=== PATIENT | female | born 1955 | race Caucasian/White ===

== ENCOUNTER 2024-11-23 11:27 | Outpatient (CLI) | payer MEDICARE, OTHER, SELFPAY ==
--- NOTE | ~2024-11-23 | US_ITS ---
US retroperitoneal comp Ordering provider: Hedy Jimenez, History: . Chronic kidney disease, stage 4 (severe) . Comparison: None. Technique: Ultrasound bilateral kidneys. Findings: RIGHT KIDNEY: Measures 8.7x 4.1x 5.1 cm in length which is normal in size. No renal cysts. No renal m ass or visualized echogenic stones. Otherwise, normal echotexture and contour. No hydronephrosis. Nor mal renal cortical thickness. LEFT KIDNEY: Measures 9.5x 4.9x 4.3 cm in length which is normal in size. No renal cysts. No renal ma ss or visualized echogenic stones. Otherwise, normal echotexture and contour. No hydronephrosis. Norm al renal cortical thickness. BLADDER: Underfilled. Ureteral jets were not seen bilaterally. IMPRESSION: No definite abnormality seen. Reviewed, dictated and finalized at location A.
== END 2024-11-23 11:28 | disposition home or self-care (01) ==
PROVIDERS: PCP Internal Medicine; Visit Provider Internal Medicine Nephrology
DX: N18.4 Chronic kidney disease, stage 4 (severe) (principal)
CPT/HCPCS: 76770

== ENCOUNTER 2024-11-23 12:30 | Outpatient (CLI) | payer MEDICARE, SELFPAY ==
--- OUTSIDE RECORDS SUMMARY | 2024-11-23 12:39 | XMS_ITS ---
Author Organization [facility] Address [address] [place] [address] Care Team Providers Care Allergist Immunologist Name Role Phone Hedy Gross Unavailable [phone] Social History Sex Assigned At : Social History Observation Description Sex Assigned At Female Problems Problem Type SNOMED Code ICD Code Onset Dates Problem Status W/U Status Risk Notes Problem Chronic kidney disease stage 3B (disorder) (622211707) Chronic kidney disease, stage 3b (N18.32) Active confirmed Problem Essential hypertension (91610366) Essential hypertension (I10) Active confirmed Problem Hypothyroidism (74870261) Hypothyroidism, unspecified (E03.9) Active confirmed Problem Hyperuricemia without signs of inflammatory arthritis and tophaceous disease (703195059) Hyperuricemia without signs of inflammatory arthritis and tophaceous disease (E79.0) Active confirmed Encounters Encounter Location Date Provider Diagnosis [place] [facility] [address] [facility] [address] [place] [address] 08/31/2024 Hedy Gross Chronic kidney disea se, stage 3b N18.32 ; Essential hypertension I10 ; Hypothyroidism, unspecified E03.9 and Hyperuricemia without signs of inflammatory arthritis and tophaceous disease E79.0 Assessments Encounter Date Diagnosis (ICD Code) Assessment Notes Treatment Notes Treatment Clinical Notes Section Notes 08/31/2024 Chronic kidney disease, stage 3b (ICD-10 - N18.32) 08/31/2024 Essential hypertension (ICD-10 - I10) 08/31/2024 Hypothyroidism, unspecified (ICD-10 - E03.9) 08/31/2024 Hyperuricemia without signs of inflammatory arthritis and tophaceous disease (ICD-10 - E79.0) Plan Of Treatment Next Appt Details Provider Name:Hedy givens, 11/30/2024 03:00:00 PM, [address] [facility], [address], [place], [address], Progress Notes * GEN MITCHELLOB:1955 (69 yo F)Acc No.[id number]:08/31/2024 Progress Notes Patient: QUINN SOLIS Provider: Uriah GROSS M.D :1955 A ge:69 Y S ex:Female Date:08/31/2024 Address:[address] [place], [place] [id number] Subjective: * Chief Complaints: * * Medical History: Objective: * Vitals: Assessment: * Assessment: 1. C hronic kidney disease, stage 3b - N18.32 (Primary) 2 . E ssential hypertension - I10 3 . H ypothyroidism, unspecified - E03.9 4 . H yperuricemia without signs of inflammatory arthritis and tophaceous disease - E79.0 ? Plan: * Treatment: * Billing Information: * Visit Code: 01753 Office Visit, Est Pt., Level 4. * Procedure Codes: * Electronic signature of Jennifer Gross MD on 11/23/2024 at 12:39 PM CDT Sign off status: Pending * Provider: Uriah GROSS M.D Date: 08/31/2024 Generated for Mitch nair/Yaw/eTransmitting on: 0 11/23/2024 12:39 PM CDT
--- OUTSIDE RECORDS SUMMARY | 2024-11-23 12:39 | XMS_ITS ---
Author Organization [facility] Address [address] [place] [address] Care Team Providers Care Liner Reroll Tender Name Role Phone Lor Grosshit Unavailable [phone] Social History Sex Assigned At : Social History Observation Description Sex Assigned At Female Encounters Encounter Location Date Provider Diagnosis [facility] [place] [facility] [address] [place] [address] 09/28/2024 Hedy Gross Plan Of Treatment Next Appt Details Provider Name:Hedy givens, 11/30/2024 03:00:00 PM, [address] [facility] [address], [address], Progress Notes * ISSA MITCHELLEDOB:1955 (69 yo F)Acc No.[id number]:09/28/2024 Progress Notes Patient: QUINN SOLIS Provider: Uriah GROSS M.D :1955 A ge:69 Y S ex:Female Date:09/28/2024 Address:[address] [place] [address] Subjective: * Chief Complaints: * * Medical History: Objective: * Vitals: Assessment: Plan: * Treatment: * Billing Information: * Visit Code: * Procedure Codes: * Electronic signature of Jennifer Gross MD on 11/23/2024 at 12:39 PM CDT Sign off status: Pending * Provider: Uriah GROSS M.D Date: 09/28/2024 Generated for Orianai ng/Farandeeg/eTransmitting on: 11/23/2024 12:39 PM CDT
--- OUTSIDE RECORDS SUMMARY | 2024-11-23 12:39 | XMS_ITS | Continuity of Care Document ---
Author Organization [facility] Address [address] [facility] [address] [place] [address] Phone Care Team Providers Care Human Resources Benefits Administrator Name Role Phone Marty August Unavailable Unavailable Procedures Procedure Date Eye Exam & Treatment Refraction Advance Directives Directive Yes / No Effective Date File Name No Information Encounters Encounter Description Practice Location Reason(s) For Visit Diagnoses Date Provider Providers Copied on Encounter [facility], [address], [place], [place], [id number], [place] tel:[phone] [facility] No Information 0 Mata Marty. [address] [facility] [address], [place], [address], [place]. tel:[phone] Family History Family Member Type Diagnosis Age At Onset No Information Payers Payer name Insurance type Covered libertarian ID Authoriza tion(s) Mail [employer] Benefit Plan [id number] Social History Type Description Quantity Date Captured Comments Sex Female Smoking Status No Information Chief Complaint And Reason For Visit No Information Reason For Referral Reason For Referral No Information History Of Present Illness Encounter Date Complaint History Of Prese nt Illness No Information Functional Status Date Functional Assessmen t No Information Instructions Date Instruction Additional Infor mation No Information Assessments Type Assessment Date No Information Patient Care Teams Name Effective Dates (start - stop) Status Members No Information
--- OUTSIDE RECORDS SUMMARY | 2024-11-23 12:39 | XMS_ITS | Patient Health Record ---
Author Organization [facility] Address [address] [place] [address] Care Team Providers Care Wood Flooring Specialist Name Role Phone Hedy Jimenez Unavailable [phone] Allergies Allergen (clinical drug ingredient) Drug/Non Drug Allergy documented on EMR Reaction Allergy Type Onset Date Status celecoxib CeleBREX Other Drug Allergy Active Levaquin Hives Drug Allergy Active Reason For Referral No Information Medications Medication SIG (Take, Route, Fr equency, Duration) Notes Start Date End Date Status Allopurinol 100 MG TAKE 1 TABLET BY BRIANDA TH EVERY DAY; Duration: 90 Active Social History Sex Assigned At : Social History Observation Description Sex Assigned At Female Problems Problem Type SNOMED Code ICD Code Onset Dates Problem Status W/U Status Risk Notes Problem Hypothyroidism (78461370) Hypothyroidism, unspecified (E03.9) Active confirmed Problem Secondary hyperparathyroidism (73889522) Secondary hyperparathyroi dism, not elsewhere classified (E21.1) Active confirmed Problem Vitamin D deficiency (24627157) Vitamin D deficiency, unspecified (E55.9) Active confirmed Problem Hyperlipidemia (86440493) Hyperlipidemia, unspecified (E78.5) Active confirmed Problem Hyperuricemia withou t signs of inflammatory arthritis and tophaceous disease (344569689) Hyperuricemia without signs of inflammatory arthritis and tophaceous disease (E79.0) Active confirmed Problem Heart failure (99069363) Heart failure, unspecified (I50.9) Active confirmed Problem Essential hypertensi on (83440367) Essential hypertension (I10) Active confirmed Problem Gastroesophageal reflux disease with esophagitis (disorder) (300108729) Gastro-esophage al reflux disease with esophagitis, without bleeding (K21.00) Active confirmed Problem Chronic kidney disea se stage 3A (disorder) (944577112) Chronic kidney disease, stage 3a (N18.31) Active confirmed Problem Chronic kidney disea se stage 3B (disorder) (867328013) Chronic kidney disease, stage 3b (N18.32) Active confirmed Encounters Encounter Location Date Provider Diagnosis [facility] [address] [facility] [address] [place] [address] 08/31/2024 Hedy Jimenez Chronic kidney disea se, stage 3b N18.32 [...] disease (ICD-10 - E79.0) Plan Of Treatment Pending Test Test Name Order Date ALBUMIN, RANDOM URINE W/CREATININE (6517 ) 01/02/2023 PTH, INTACT AND CALCIUM (8837) 3 RENAL FUNCTION PANEL (81482) 01/02/2023 URIC ACID (905) 01/02/2023 CBC (INCLUDES DIFF/PLT) (6399) 3 URINALYSIS, COMPLETE W/REFLEX TO CULTURE (3020) 01/02/2023 VITAMIN D,25-OH,TOTAL,IA (08142) 023 Next Appt Details Provider Name:Hedy givens, 11/30/2024 03:00:00 PM, [address] [facility], [address], [place], [address],
--- OUTSIDE RECORDS SUMMARY | 2024-11-23 12:40 | XMS_ITS ---
Author Organization [facility] Address [address] [facility] [address] [facility] [address] [place] [address] Care Team Providers Care Registered Phlebotomist Part Time Name Role Phone Barbara Hedy Unavailable [phone] Social History Sex Assigned At : Social History Observation Description Sex Assigned At Female Encounters Encounter Location Date Provider Diagnosis [place] [facility] [address] [facility] [address] [place] [address] 11/02/2024 Hedy Gross Plan Of Treatment Next Appt Details Provider Name:Hedy givens, 11/30/2024 03:00:00 PM, [address] [facility] [address], [place], [address], Progress Notes * ISSA MITCHELLEDOB:1955 (69 yo F)Acc No.[id number]:11/02/2024 Progress Notes Patient: QUINN SOLIS Provider: Uriah GROSS M.D :1955 A ge:69 Y S ex:Female Date:11/02/2024 Address:[address] [place] [address] Subjective: * Chief Complaints: * * Medical History: Objective: * Vitals: Assessment: Plan: * Treatment: * Billing Information: * Visit Code: * Procedure Codes: * Electronic signature of Jennifer Gross MD on 11/23/2024 at 12:40 PM CDT Sign off status: Pending * Provider: Uriah GROSS M.D Date: 11/02/2024 Generated for Orianai ng/Faxing/eTransmitting on: 11/23/2024 12:40 PM CDT
--- OUTSIDE RECORDS SUMMARY | 2024-11-23 12:40 | XMS_ITS | Data Portability ---
Author Organization [facility], Main Office Address [address] [place] [address] Care Team Providers Care Hand Twister Name Role Phone POND JEFF Primary Care Provider JEFF POND Referring Provider [phone] Assessment No assessment recorded. Plan of Treatment Reminders Order Date Submit Date Provider Last Modified By Organization Details Last Modified Time Details Appointments None recorded. Lab PTH (parathyroi d hormone), intact, serum or plasma 2023 [facility], [address] [place], [address], 4 18:15:29 vitamin D, 25-hydroxy, total, serum 2023 [facility] Out[facility] Lab, [address] [place], [address], 5 16:36:51 phosphorus, serum or plasma 2023 [facility], [address] [place], [address], 4 18:05:56 uric acid, serum or plasma 2023 [facility], [address] [place], [address], 4 18:05:59 urinalysis complete, reflex culture [email or web address] [place] [address] Outpatient Lab, [address] [place], [address], 5 16:36:51 vitamin B12, serum 2023 [facility], [address] [place], [address], 4 18:55:58 magnesium, serum or plasma 2023 [facility], [address] [place], [address], 4 18:05:54 CBC w/ auto diff 2023 [facility], [address] [place], [address], 4 17:46:03 CMP, serum or plasma 2023 [facility], [address] [place], [address], 4 18:05:49 lipid panel, serum 2023 [facility], [address] [place], [address], 4 18:05:52 TSH, serum or plasma 2023 [facility], [address] [place], [address], 4 18:34:27 T4, free, serum 2023 024 [facility], [address] [place], [address], 4 18:21:18 PTH (parathyroi d hormone), intact, serum or plasma 2023 024 [facility], [address] [place], [address], 4 21:29:38 vitamin D, 25-hydroxy, total, serum 2023 [email or web address] [facility] Out[facility] Lab, [address] [place], [address], 4 12:55:26 phosphorus, serum or plasma 2023 024 [facility], [address] [place], [address], 4 18:32:25 uric acid, serum or plasma 2023 024 [facility], [address] [place], [address], 4 18:32:29 urinalysis complete, reflex culture 2023 024 [email or web address] [facility] Out[facility] Lab, [address] [place], [address], 4 12:55:26 lipid panel, serum 2023 024 [facility], [address] [place], [address], 4 18:32:14 CMP, serum or plasma 2023 024 [facility], [address] [place], [address], 4 18:32:20 vitamin B12, serum 2023 024 [facility], [address] [place], [address], 4 22:35:44 magnesium, serum or plasma 2023 024 [facility], [address] [place], [address], 4 18:32:23 CBC w/ auto diff 2023 024 [facility], [address] [place], [address], 4 17:51:56 TSH, serum or plasma 2023 024 [facility], [address] [place], [address], 4 19:34:26 T4, free, serum 2023 024 [facility], [address] [place], [address], 4 18:34:20 PTH (parathyroi d hormone), intact, serum or plasma 2022 023 [facility], [address] [place] [address], [address], 3 19:06:47 phosphorus, serum or plasma 2022 023 [facility], [address] [place], [address], 3 18:47:47 uric acid, serum or plasma 2022 023 [facility], [address] [place] [address], [address], 3 18:47:55 vitamin D, 25-hydroxy, total, serum [email or web address] Outpatient Lab, [address] [place], [address], 3 09:43:32 urinalysis complete, reflex culture [address] Outpatient Lab, [address] [place] [address], [address], 3 09:43:32 lipid panel, serum 2022 023 [facility] Outpatient Lab, [address] [place], [address], 3 15:20:21 CMP, serum or plasma 2022 023 [facility], [address] [place], [address], 3 18:47:42 CBC w/ auto diff 2022 023 [facility], [address] [place], [address], 3 17:59:14 TSH, serum or plasma 2022 023 [facility], [address] [place], [address], 3 19:21:30 T4, free, serum 2022 023 [facility], [address] [place], [address], 3 19:09:09 Referral None recorded. Procedures None recorded. Surgeries None recorded. Imaging None recorded. Medication Orders None recorded. Patient TargetsNo targets recorded. Patient Instructions Encounter Date Encounter Id Patient Instructions Last Modified By Organization Details Last Modified Time 09/12/2022 [id number] Hypertension -hyperlipidemia-chr onic kidney disease. Blood work in the form of CBC, CMP, lipid, thyroid, phosphorus, PTH, vitamin-D level and urinalysis with reflex to culture. Continue on current Rx. Follow-up in four months. [email or web address] Not available 09/12/2022 16:41:32 01/18/2023 [id number] Follow-up hypertension -hypothyroidism -chronic kidney disease -GERD- hyperlipidemia. All clinically stable this time. Will continue on current Rx has a considerable amount of blood work already ordered by Nephrology. Will continue on current medications follow-up in four months. Portions of the record may have been created with voice recognition software. Occasional wrong-word or [id number]-f-[id number] substitutions may have occurred due to the inherent limitations of voice recognition software. Read the chart carefully and recognize, using context, where substitutions have occurred. Next Appt: 4 Months Approximate Date: 05/18/2023 [email or web address] Not available 01/18/2023 11:58:08 09/16/2023 [id number] Follow-up hypertension, hyperlipidemia, hypothyroidism, GERD, chronic kidney disease stage IIIB all clinically stable. The patient needs to be followed by Nephrology but it is very were reluctant to do so. Will check blood work consisting of CBC, CMP, lipid, thyroid, phosphorus, PTH level, vitamin-D, uric acid level and urinalysis with reflex to culture. Is overdue on mammogram. Refused to have any colonoscopy or any Cologuard test performed. Also refuses a bone density scan. Follow-up in four months Next Appointment: 4 Months Approximate Date: 01/14/2024 Portions of the record may have been created with voice recognition software. Occasional wrong-word or [id number]-t-txcz substitutions may have occurred due to the inherent limitations of voice recognition software. Read the chart carefully and recognize, using context, where substitutions have occurred. [email or web address] Not available 09/16/2023 16:26:08 05/04/2024 [id number] Follow-up for hypertension, hyperlipidemia, GERD, chronic kidney disease stage IIIB and chronic pain syndrome which is reasonably well controlled simply with Tylenol at this time. Will check blood work consisting of CBC, CMP, lipid, thyroid, PTH, phosphorus, magnesium level, uric acid and B12 and magnesium levels. Continue on current Rx. Needs to be followed by Nephrology. Once again emphasized that she should not take any type of cjzy-isd-lwgmsin nonsteroidals such as Motrin Advil Aleve etc.. Additional Orders - Directives - Recommendations 1. No bfnh-fec-iziteex NSAIDs such as Advil, Aleve, Motrin or any other these agents without notifying us 1st. 2. Mammogram 3. Cologuard test Follow Up: 4 Months Approximate Date: 09/01/2024 Portions of the record may have been created with voice recognition software. Occasional wrong-word or xlqxp-e-mnmr substitutions may have occurred due to the inherent limitations of voice recognition software. Read the chart carefully and recognize, using context, where substitutions have occurred. Created: Jeff Pond M.D. 05.04.2024 03:43 PM Additional Orders - Directives - Recommendations 1. No bpwe-sxg-zsrvjgk NSAIDs such as Advil, Aleve, Motrin or any other these agents without notifying us 1st. 2. Mammogram 3. Cologuard test Follow Up: 4 Months Approximate Date: 09/01/2024 Portions of the record may have been created with voice recognition software. Occasional wrong-word or bcpmf-e-ylxr substitutions may have occurred due to the inherent limitations of voice recognition software. Read the chart carefully and recognize, using context, where substitutions have occurred. Created: Jeff Pond M.D. 05.04.2024 03:44 PM [email or web address] Not available 05/04/2024 16:44:13 08/31/2024 [id number] Follow-up for essential hypertension, hypothyroidism, chronic kidney disease and GERD all clinically stable. Is being followed by Nephrology at this time. Will not change in medication. Has been taking quite a bit in the way of Tylenol. When calculated out she has consuming approximately 3 g per day. But she is off her other pain medications. Will continue on current Rx and follow-up four months Follow Up: 4 Months Approximate Date: 12/29/2024 Portions of record are template driven. When necessary additional context will be provided. Additionally some portions have been created with voice recognition software. Occasional wrong-word or sbxfg-f-oyhz substitutions may have occurred due to the inherent limitations of voice recognition software. Read the chart carefully and recognize, using context, where substitutions may have occurred. Created: Jeff Pond M.D. 08.31.2024 04:09 PM [email or web address] Not available 08/31/2024 17:09:17 Reason for Referral None Reported. Results Created Date Observation Date Name Description Value Unit Range Abnormal Flag Note LastModifiedBy Organization Detail LastModifiedTime 09/13/1909/12/2022 CBC/C OMPLE TE BLD COUNT W/DIF F white blood cells 13.1 x10'3 /uL 4.2-10 .8 high Not Available [facility] (Lab) [address] [place], [address], 09/12/2022 17:59:14 09/13/19 23 09/12/2022 CBC/C OMPLE TE BLD COUNT W/DIF F red blood cells 4.95 x10'6 /uL 3.80-5 .20 Not Available [facility] (Lab) [address] [facility] [place], [address], 09/12/2022 17:59:14 09/13/19 23 09/12/2022 CBC/C OMPLE TE BLD COUNT W/DIF F hemoglobin 15.1 g/dL 12.0-1 5.6 Not Available [facility] (Lab) [address] [facility] [place], [address], 09/12/2022 17:59:14 09/13/19 23 09/12/2022 CBC/C OMPLE TE BLD COUNT W/DIF F hematocrit 45.6 % 35.7-4 5.7 Not Available [facility] (Lab) [address] [place], [address], 09/12/2022 17:59:14 09/13/19 23 09/12/2022 CBC/C OMPLE TE BLD COUNT W/DIF F mean red cell volume 92.1 fL 82.0-9 9.0 Not Available [facility] (Lab) [address] [place], [address], 09/12/2022 17:59:14 09/13/19 23 09/12/2022 CBC/C OMPLE TE BLD COUNT W/DIF F mean red cell hemoglobin 30.5 pg 27.0-3 3.0 Not Available [facility] (Lab) [address] [place], [address], 09/12/2022 17:59:14 09/13/19 23 09/12/2022 CBC/C OMPLE TE BLD COUNT W/DIF F mean RBC HGB concentratio n 33.1 g/dL 31.0-3 6.0 Not Available [facility] (Lab) [address] [place], [address], 09/12/2022 17:59:14 09/13/19 23 09/12/2022 CBC/C OMPLE TE BLD COUNT W/DIF F red cell distribution width 13.9 % 11.8-1 5.5 Not Available [facility] (Lab) [address] [place], [address], 09/12/2022 17:59:14 09/13/19 23 09/12/2022 CBC/C OMPLE TE BLD COUNT W/DIF F platelets 243 x10'3 /uL 150-40 0 Not Available [facility] (Lab) [address] [place], [address], 09/12/2022 17:59:14 09/13/19 23 09/12/2022 CBC/C OMPLE TE BLD COUNT W/DIF F mean platelet volume 10.4 fL 9.0-12 .4 Not Available [facility] (Lab) [address] [place], [address], 09/12/2022 17:59:14 09/13/19 23 09/12/2022 CBC/C OMPLE TE BLD COUNT W/DIF F neutrophils 59.5 % 39.0-7 2.0 Not Available [facility] (Lab) [address] [place], [address], 09/12/2022 17:59:14 09/13/19 23 09/12/2022 CBC/C OMPLE TE BLD COUNT W/DIF F lymphocytes 31.7 % 16.0-4 7.0 Not Available [facility] (Lab) [address] [place], [address], 09/12/2022 17:59:14 09/13/19 23 09/12/2022 CBC/C OMPLE TE BLD COUNT W/DIF F monocytes 4.7 % 5.0-12 .0 low Not Available [facility] (Lab) [address] [place], [address], 09/12/2022 17:59:14 09/13/19 23 09/12/2022 CBC/C OMPLE TE BLD COUNT W/DIF F eosinophils 3.1 % 1.0-7. 0 Not Available [facility] (Lab) [address] [place], [address], 09/12/2022 17:59:14 09/13/19 23 09/12/2022 CBC/C OMPLE TE BLD COUNT W/DIF F basophils 0.7 % 0.0-2. 0 Not Available [facility] (Lab) [address] [place], [address], 09/12/2022 17:59:14 09/13/1909/12/2022 CBC/C OMPLE TE BLD COUNT W/DIF F immature granulocytes 0.3 % 0.00-0 .50 Not Available [facility] (Lab) [address] [place], [address], 09/12/2022 17:59:14 09/13/19 23 09/12/2022 CBC/C OMPLE TE BLD COUNT W/DIF F neutrophils, absolute count 7.81 x10'3 /uL 1.5-8. 0 Not Available [facility] (Lab) [address] [place], [address], 09/12/2022 17:59:14 09/13/19 23 09/12/2022 CBC/C OMPLE TE BLD COUNT W/DIF F lymphocytes, absolute count 4.16 x10'3 /uL 1.07-3 .43 high Not Available [facility] (Lab) [address] [place], [address], 09/12/2022 17:59:14 09/13/19 23 09/12/2022 CBC/C OMPLE TE BLD COUNT W/DIF F monocytes, absolute count 0.61 x10'3 /uL 0.29-0 .99 Not Available [facility] (Lab) [address] [place], [address], 09/12/2022 17:59:14 09/13/19 23 09/12/2022 CBC/C OMPLE TE BLD COUNT W/DIF F eosinophils, absolute count 0.40 x10'3 /uL 0.02-0 .53 Not Available [facility] (Lab) [address] [place], [address], 09/12/2022 17:59:14 09/13/19 23 09/12/2022 CBC/C OMPLE TE BLD COUNT W/DIF F basophils, absolute count 0.09 x10'3 /uL 0.01-0 .08 high Not Available [facility] (Lab) [address] [place], [address], 09/12/2022 17:59:14 09/13/19 23 09/12/2022 CBC/C OMPLE TE BLD COUNT W/DIF F immature granulocytes ,absolute 0.04 x10'3 /uL 0.00-0 .05 Not Available [facility] (Lab) [address] [place], [address], 09/12/2022 17:59:14 09/13/19 23 09/12/2022 CBC/C OMPLE TE BLD COUNT W/DIF F nucleated red blood cells 0.0 % -0 Not Available [facility] (Lab) [address] [place], [address], 09/12/2022 17:59:14 09/13/19 23 09/12/2022 CBC/C OMPLE TE BLD COUNT W/DIF F NRBC# 0.00 x10'3 /uL Not Available [facility] (Lab) [address] [place], [address], 09/12/2022 17:59:14 09/13/19 23 09/12/2022 COMPR EHENS BRAYDEN METAB OLIC PANEL sodium 138 mmol/ L 137-14 5 Not Available [facility] (Lab) [address] [place], [address], 09/12/2022 18:47:42 09/13/19 23 09/12/2022 COMPR EHENS BRAYDEN METAB OLIC PANEL potassium 3.7 mmol/ L 3.5-5. 1 Not Available [facility] (Lab) [address] [place], [address], 09/12/2022 18:47:42 09/13/19 23 09/12/2022 COMPR EHENS BRAYDEN METAB OLIC PANEL chloride 101 mmol/ L 98-107 Not Available [facility] (Lab) [address] [place], [address], 09/12/2022 18:47:42 09/13/19 23 09/12/2022 COMPR EHENS BRAYDEN METAB OLIC PANEL carbon dioxide 25 mmol/ L 22-30 Not Available [facility] (Lab) [address] [place], [address], 09/12/2022 18:47:42 09/13/19 23 09/12/2022 COMPR EHENS BRAYDEN METAB OLIC PANEL anion gap 15.7 mmol/ L 14-22 Not Available [facility] (Lab) [address] [place], [address], 09/12/2022 18:47:42 09/13/19 23 09/12/2022 COMPR EHENS BRAYDEN METAB OLIC PANEL glucose 101 mg/dL 70-99 high Not Available [facility] (Lab) [address] [place], [address], 09/12/2022 18:47:42 09/13/19 23 09/12/2022 COMPR EHENS BRAYDEN METAB OLIC PANEL BUN 17 mg/dL 8-19 Not Available [facility] (Lab) [address] [place], [address], 09/12/2022 18:47:42 09/13/19 23 09/12/2022 COMPR EHENS BRAYDEN METAB OLIC PANEL creatinine 1.63 mg/dL 0.66-1 .25 high Not Available [facility] (Lab) [address] [place], [address], 09/12/2022 18:47:42 09/13/1909/12/2022 COMPR EHENS BRAYDEN METAB OLIC PANEL GFR 32 Refer ence Range : [place] GFR Healt hy Adult : >60 mL/mi n/1.7 3 m2 Chron ic Kidne y Disea se: 15-60 mL/mi n/1.7 3 m2 Kidne y Failu re: <15/m L/min /1.73 m2 www.n iddk. nih.g ov The MDRD study equat ion has not been valid ated in child germán <18 years of age; pregn ant women ; the elder ly >85 years of age; or in some racia l or ethni c subgr oups, such as Hispa nics. Outsi de the valid ated shayy eters , estim ated GFR is less accur ate, requi ring clini lewis judgm ent on a case- by-ca se basis . Clini lewis inter preta tion for other races and ages must be made by the clini manpreet. The MDRD study equat ion has not been valid ated for the evalu ation of serum creat inine relat ed to nutri lisha l statu s or medic ation usage . For perso ns <18 years of age, a pedia tric GFR calcu lator is avail able on the [facility] websi te: https :[email or web address] gustafson.susan mckeon/pr ofess ional s/kdo qi/gf r_cal culat or Not Available [facility] (Lab) [address] [place], [address], 09/12/2022 18:47:42 09/13/1909/12/2022 COMPR EHENS BRAYDEN METAB OLIC PANEL alkaline phosphatase 92 U/L 38-126 Not Available [facility] (Lab) [address] [place], [address], 09/12/2022 18:47:42 09/13/19 23 09/12/2022 COMPR EHENS BRAYDEN METAB OLIC PANEL alanine aminotransfe rase 12 U/L 0-35 Not Available [facility] (Lab) [address] [place], [address], 09/12/2022 18:47:42 09/13/19 23 09/12/2022 COMPR EHENS BRAYDEN METAB OLIC PANEL aspartate aminotransfe rase 22 U/L 15-37 Not Available [facility] (Lab) [address] [place], [address], 09/12/2022 18:47:42 09/13/19 23 09/12/2022 COMPR EHENS BRAYDEN METAB OLIC PANEL bilirubin, total 0.50 mg/dL 0.20-1 .30 Not Available [facility] (Lab) [address] [place], [address], 09/12/2022 18:47:42 09/13/19 23 09/12/2022 COMPR EHENS BRAYDEN METAB OLIC PANEL calcium 9.2 mg/dL 8.4-10 .2 Not Available [facility] (Lab) [address] [place], [address], 09/12/2022 18:47:42 09/13/19 23 09/12/2022 COMPR EHENS BRAYDEN METAB OLIC PANEL total protein 7.5 g/dL 6.3-8. 2 Not Available [facility] (Lab) [address] [place], [address], 09/12/2022 18:47:42 09/13/19 23 09/12/2022 COMPR EHENS BRAYDEN METAB OLIC PANEL albumin 4.5 g/dL 3.0-4. 4 high Not Available [facility] (Lab) [address] [place], [address], 09/12/2022 18:47:42 09/13/19 23 09/12/2022 COMPR EHENS BRAYDEN METAB OLIC PANEL globulin 3.0 g/dL 2.6-4. 2 Not Available [facility] (Lab) [address] [place], [address], 09/12/2022 18:47:42 09/13/19 23 09/12/2022 COMPR EHENS BRAYDEN METAB OLIC PANEL A/G ratio 1.5 ratio 1.0-2. 0 Not Available [facility] (Lab) [address] [place], [address], 09/12/2022 18:47:42 09/13/19 23 09/12/2022 PHOSP HORUS phosphorus 3.8 mg/dL 2.5-4. 5 Not Available [facility] (Lab) [address] [place], [address], 09/12/2022 18:47:47 09/13/19 23 09/12/2022 URIC ACID SERUM uric acid 7.2 mg/dL 2.5-6. 2 high Not Available [facility] (Lab) [address] [place], [address], 09/12/2022 18:47:54 09/13/1909/12/2022 PARAT HY.HO RM(PT H)INT ACT-W /O CA intact parathyroid hormone 193.5 pg/mL 24.0-7 8.0 high Pleas e note new refer ence range effec tive 06/08 . Not Available [facility] (Lab) [address] [place], [address], 09/12/2022 19:06:47 09/13/19 23 09/12/2022 VITAM IN D 25-HY DROXY [id number] 34.2 NG/mL 30-100 Vitam in D Statu s: Defic ient: <20 ng/mL Insuf ficie nt: 20-29 ng/mL Suffi cient : 30-10 0 ng/mL Not Available [facility] (Lab) [address] [place], [address], 09/12/2022 19:07:28 09/13/19 23 09/12/2022 T4 FREE free T4 2.01 NG/dL 0.78-2 .19 Not Available [facility] (Lab) [address] [place], [address], 09/12/2022 19:09:09 09/13/19 23 09/12/2022 TSH thyroid-stim ulating hormone 2.590 uIU/m L 0.465- 4.680 Not Available [facility] (Lab) [address] [place], [address], 09/12/2022 19:21:30 09/15/19 23 09/14/2022 URINA LYSIS COMPL ETE/I RIS W/RFX color YELLOW Not Available [facility] (Lab) [address] [place], [address], 09/14/2022 16:43:14 09/15/19 23 09/14/2022 URINA LYSIS COMPL ETE/I RIS W/RFX appear CLEAR Not Available [facility] (Lab) [address] [place], [address], 09/14/2022 16:43:14 09/15/19 23 09/14/2022 URINA LYSIS COMPL ETE/I RIS W/RFX specific gravity 1.011 1.001- 1.030 Not Available [facility] (Lab) [address] [place], [address], 09/14/2022 16:43:14 09/15/19 23 09/14/2022 URINA LYSIS COMPL ETE/I RIS W/RFX pH 5.5 pH_un its 5.0-9. 0 Not Available [facility] (Lab) [address] [place], [address], 09/14/2022 16:43:14 09/15/19 23 09/14/2022 URINA LYSIS COMPL ETE/I RIS W/RFX leukocytes NEGATI VE batool/u L negati ve- Not Available [facility] (Lab) [address] [place], [address], 09/14/2022 16:43:14 09/15/19 23 09/14/2022 URINA LYSIS COMPL ETE/I RIS W/RFX nitrite NEGATI VE negati ve- Not Available [facility] (Lab) [address] [place], [address], 09/14/2022 16:43:14 09/15/19 23 09/14/2022 URINA LYSIS COMPL ETE/I RIS W/RFX protein NEGATI VE mg/dL negati ve- Not Available [facility] (Lab) [address] [place], [address], 09/14/2022 16:43:14 09/15/19 23 09/14/2022 URINA LYSIS COMPL ETE/I RIS W/RFX glucose NORMAL mg/dL normal - Not Available [facility] (Lab) [address] [place], [address], 09/14/2022 16:43:14 09/15/19 23 09/14/2022 URINA LYSIS COMPL ETE/I RIS W/RFX ketones NEGATI VE mg/dL negati ve- Not Available [facility] (Lab) [address] [place], [address], 09/14/2022 16:43:14 09/15/19 23 09/14/2022 URINA LYSIS COMPL ETE/I RIS W/RFX urobilinogen NORMAL mg/dL normal - Not Available [facility] (Lab) [address] [place], [address], 09/14/2022 16:43:14 09/15/19 23 09/14/2022 URINA LYSIS COMPL ETE/I RIS W/RFX bilirubin NEGATI VE mg/dL negati ve- Not Available [facility] (Lab) [address] [place], [address], 09/14/2022 16:43:14 09/15/19 23 09/14/2022 URINA LYSIS COMPL ETE/I RIS W/RFX blood NEGATI VE mg/dL negati ve- Not Available [facility] (Lab) [address] [place], [address], 09/14/2022 16:43:14 09/15/19 23 09/14/2022 URINA LYSIS COMPL ETE/I RIS W/RFX white blood cells 0-8 /i??h pfi?? 0-8 Not Available [facility] (Lab) [address] [place], [address], 09/14/2022 16:43:14 09/15/19 23 09/14/2022 URINA LYSIS COMPL ETE/I RIS W/RFX red blood cells 0-4 /i??h pfi?? 0-4 Not Available [facility] (Lab) [address] [place], [address], 09/14/2022 16:43:14 09/15/19 23 09/14/2022 URINA LYSIS COMPL ETE/I RIS W/RFX bacteria OCCASI ONAL abnormal Not Available [facility] (Lab) [address] [place], [address], 09/14/2022 16:43:14 09/15/19 23 09/14/2022 URINA LYSIS COMPL ETE/I RIS W/RFX mucous OCCASI ONAL /i??l pfi?? abnormal Not Available [facility] (Lab) [address] [place], [address], 09/14/2022 16:43:14 09/15/19 23 09/14/2022 URINA LYSIS COMPL ETE/I RIS W/RFX squamous epithelial FEW /i??l pfi?? abnormal Not Available [facility] (Lab) [address] [place], [address], 09/14/2022 16:43:14 09/15/19 23 09/14/2022 URINA LYSIS COMPL ETE/I RIS W/RFX hyaline cast MODERA TE /i??l pfi?? none seen- abnormal Not Available [facility] (Lab) [address] [facility] [place], [address], 09/14/2022 16:43:14 09/16/19 24 09/16/2023 CBC/C OMPLE TE BLD COUNT W/DIF F white blood cells 13.5 x10'3 /uL 4.2-10 .8 high Not Available [facility] (Lab) [address] [place], [address], 09/16/2023 17:51:55 09/16/19 24 09/16/2023 CBC/C OMPLE TE BLD COUNT W/DIF F red blood cells 4.91 x10'6 /uL 3.80-5 .20 Not Available [facility] (Lab) [address] [place], [address], 09/16/2023 17:51:55 09/16/19 24 09/16/2023 CBC/C OMPLE TE BLD COUNT W/DIF F hemoglobin 16.0 g/dL 12.0-1 5.6 high Not Available [facility] (Lab) [address] [place], [address], 09/16/2023 17:51:55 09/16/19 24 09/16/2023 CBC/C OMPLE TE BLD COUNT W/DIF F hematocrit 46.6 % 35.7-4 5.7 high Not Available [facility] (Lab) [address] [place], [address], 09/16/2023 17:51:55 09/16/19 24 09/16/2023 CBC/C OMPLE TE BLD COUNT W/DIF F mean red cell volume 94.9 fL 82.0-9 9.0 Not Available [facility] (Lab) [address] [place], [address], 09/16/2023 17:51:55 09/16/19 24 09/16/2023 CBC/C OMPLE TE BLD COUNT W/DIF F mean red cell hemoglobin 32.6 pg 27.0-3 3.0 Not Available [facility] (Lab) [address] [facility] [place], [address], 09/16/2023 17:51:55 09/16/19 24 09/16/2023 CBC/C OMPLE TE BLD COUNT W/DIF F mean RBC HGB concentratio n 34.3 g/dL 31.0-3 6.0 Not Available [facility] (Lab) [address] [place], [address], 09/16/2023 17:51:55 09/16/19 24 09/16/2023 CBC/C OMPLE TE BLD COUNT W/DIF F red cell distribution width 13.3 % 11.8-1 5.5 Not Available [facility] (Lab) [address] [place], [address], 09/16/2023 17:51:55 09/16/19 24 09/16/2023 CBC/C OMPLE TE BLD COUNT W/DIF F platelets 305 x10'3 /uL 150-40 0 Not Available [facility] (Lab) [address] [place], [address], 09/16/2023 17:51:55 09/16/19 24 09/16/2023 CBC/C OMPLE TE BLD COUNT W/DIF F mean platelet volume 10.6 fL 9.0-12 .4 Not Available [facility] (Lab) [address] [place], [address], 09/16/2023 17:51:55 09/16/19 24 09/16/2023 CBC/C OMPLE TE BLD COUNT W/DIF F neutrophils 71.9 % 39.0-7 2.0 Not Available [facility] (Lab) [address] [place], [address], 09/16/2023 17:51:55 09/16/19 24 09/16/2023 CBC/C OMPLE TE BLD COUNT W/DIF F lymphocytes 20.2 % 16.0-4 7.0 Not Available [facility] (Lab) [address] [place], [address], 09/16/2023 17:51:55 09/16/19 24 09/16/2023 CBC/C OMPLE TE BLD COUNT W/DIF F monocytes 4.7 % 5.0-12 .0 low Not Available [facility] (Lab) [address] [place], [address], 09/16/2023 17:51:55 09/16/19 24 09/16/2023 CBC/C OMPLE TE BLD COUNT W/DIF F eosinophils 1.9 % 1.0-7. 0 Not Available [facility] (Lab) [address] [place], [address], 09/16/2023 17:51:55 09/16/19 24 09/16/2023 CBC/C OMPLE TE BLD COUNT W/DIF F basophils 0.9 % 0.0-2. 0 Not Available [facility] (Lab) [address] [place], [address], 09/16/2023 17:51:55 09/16/19 24 09/16/2023 CBC/C OMPLE TE BLD COUNT W/DIF F immature granulocytes 0.4 % 0.00-0 .50 Not Available [facility] (Lab) [address] [place], [address], 09/16/2023 17:51:55 09/16/19 24 09/16/2023 CBC/C OMPLE TE BLD COUNT W/DIF F neutrophils, absolute count 9.68 x10'3 /uL 1.5-8. 0 high Not Available [facility] (Lab) [address] [place], [address], 09/16/2023 17:51:55 09/16/19 24 09/16/2023 CBC/C OMPLE TE BLD COUNT W/DIF F lymphocytes, absolute count 2.72 x10'3 /uL 1.07-3 .43 Not Available [facility] (Lab) [address] [place], [address], 09/16/2023 17:51:55 09/16/19 24 09/16/2023 CBC/C OMPLE TE BLD COUNT W/DIF F monocytes, absolute count 0.63 x10'3 /uL 0.29-0 .99 Not Available [facility] (Lab) [address] [place], [address], 09/16/2023 17:51:55 09/16/19 24 09/16/2023 CBC/C OMPLE TE BLD COUNT W/DIF F eosinophils, absolute count 0.26 x10'3 /uL 0.02-0 .53 Not Available [facility] (Lab) [address] [place], [address], 09/16/2023 17:51:55 09/16/19 24 09/16/2023 CBC/C OMPLE TE BLD COUNT W/DIF F basophils, absolute count 0.12 x10'3 /uL 0.01-0 .08 high Not Available [facility] (Lab) [address] [place], [address], 09/16/2023 17:51:55 09/16/19 24 09/16/2023 CBC/C OMPLE TE BLD COUNT W/DIF F immature granulocytes ,absolute 0.06 x10'3 /uL 0.00-0 .05 high Not Available [facility] (Lab) [address] [place], [address], 09/16/2023 17:51:55 09/16/19 24 09/16/2023 CBC/C OMPLE TE BLD COUNT W/DIF F nucleated red blood cells 0.0 % -0 Not Available [facility] (Lab) [address] [place], [address], 09/16/2023 17:51:55 09/16/19 24 09/16/2023 CBC/C OMPLE TE BLD COUNT W/DIF F NRBC# 0.00 x10'3 /uL Not Available [facility] (Lab) [address] [place], [address], 09/16/2023 17:51:55 09/16/19 24 09/16/2023 URINA LYSIS COMPL ETE/I RIS W/RFX color YELLOW Not Available [facility] (Lab) [address] [place], [address], 09/16/2023 17:52:22 09/16/19 24 09/16/2023 URINA LYSIS COMPL ETE/I RIS W/RFX appear EXTRA TURBID abnormal Not Available [facility] (Lab) [address] [place], [address], 09/16/2023 17:52:22 09/16/19 24 09/16/2023 URINA LYSIS COMPL ETE/I RIS W/RFX specific gravity 1.025 1.001- 1.030 Not Available [facility] (Lab) [address] [place], [address], 09/16/2023 17:52:22 09/16/19 24 09/16/2023 URINA LYSIS COMPL ETE/I RIS W/RFX pH 5.0 pH_un its 5.0-9. 0 Not Available [facility] (Lab) [address] [place], [address], 09/16/2023 17:52:22 09/16/19 24 09/16/2023 URINA LYSIS COMPL ETE/I RIS W/RFX leukocytes 250 batool/u L negati ve- abnormal Not Available [facility] (Lab) [address] [place], [address], 09/16/2023 17:52:22 09/16/19 24 09/16/2023 URINA LYSIS COMPL ETE/I RIS W/RFX nitrite NEGATI VE negati ve- Not Available [facility] (Lab) [address] [place], [address], 09/16/2023 17:52:22 09/16/19 24 09/16/2023 URINA LYSIS COMPL ETE/I RIS W/RFX protein 30 mg/dL negati ve- abnormal Not Available [facility] (Lab) [address] [place], [address], 09/16/2023 17:52:22 09/16/19 24 09/16/2023 URINA LYSIS COMPL ETE/I RIS W/RFX glucose NORMAL mg/dL normal - Not Available [facility] (Lab) [address] [place], [address], 09/16/2023 17:52:22 09/16/19 24 09/16/2023 URINA LYSIS COMPL ETE/I RIS W/RFX ketones NEGATI VE mg/dL negati ve- Not Available [facility] (Lab) [address] [place], [address], 09/16/2023 17:52:22 09/16/19 24 09/16/2023 URINA LYSIS COMPL ETE/I RIS W/RFX urobilinogen 3 mg/dL normal - abnormal Not Available [facility] (Lab) [address] [place], [address], 09/16/2023 17:52:22 09/16/19 24 09/16/2023 URINA LYSIS COMPL ETE/I RIS W/RFX bilirubin NEGATI VE mg/dL negati ve- Not Available [facility] (Lab) [address] [place], [address], 09/16/2023 17:52:22 09/16/19 24 09/16/2023 URINA LYSIS COMPL ETE/I RIS W/RFX blood NEGATI VE mg/dL negati ve- Not Available [facility] (Lab) [address] [place], [address], 09/16/2023 17:52:22 09/16/19 24 09/16/2023 URINA LYSIS COMPL ETE/I RIS W/RFX white blood cells 0-8 /i??h pfi?? 0-8 Not Available [facility] (Lab) [address] [place], [address], 09/16/2023 17:52:22 09/16/19 24 09/16/2023 URINA LYSIS COMPL ETE/I RIS W/RFX red blood cells 5-10 /i??h pfi?? 0-4 abnormal Not Available [facility] (Lab) [address] [place], [address], 09/16/2023 17:52:22 09/16/19 24 09/16/2023 URINA LYSIS COMPL ETE/I RIS W/RFX bacteria OCCASI ONAL abnormal Not Available [facility] (Lab) [address] [place], [address], 09/16/2023 17:52:22 09/16/19 24 09/16/2023 URINA LYSIS COMPL ETE/I RIS W/RFX mucous OCCASI ONAL /i??l pfi?? abnormal Not Available [facility] (Lab) [address] [place], [address], 09/16/2023 17:52:22 09/16/19 24 09/16/2023 URINA LYSIS COMPL ETE/I RIS W/RFX squamous epithelial PACKED FIELD /i??l pfi?? abnormal Not Available [facility] (Lab) [address] [place], [address], 09/16/2023 17:52:22 09/16/19 24 09/16/2023 LIPID PANEL cholesterol 162 mg/dL 140-19 9 NIH ANGEL NSUS RECOM MENDA TION FOR DELMY STERO L: ADULT CHILD LOW RISK: <200 <170 BORDE RLINE : <200- 239 ----- HIGH RISK: >240 >200 Not Available [facility] (Lab) [address] [place], [address], 09/16/2023 18:32:14 09/16/19 24 09/16/2023 LIPID PANEL triglyceride s 172 mg/dL 0-150 high NIH ANGEL NSUS REPOR T RECOM MENDA TION FOR TRIGL YCERI KENDRICK: ADULT CHILD LOW RISK: <150 ----- BODER LINE: 150-1 99 ----- HIGH RISK: >200 ----- Not Available [facility] (Lab) [address] [place], [address], 09/16/2023 18:32:14 09/16/19 24 09/16/2023 LIPID PANEL HDL cholesterol 46 mg/dL 40- Not Available [facility] (Lab) [address] [place], [address], 09/16/2023 18:32:14 09/16/19 24 09/16/2023 LIPID PANEL LDL cholesterol, calculated 82 mg/dL 0-130 NIH ANGEL NSUS REPOR T RECOM MENDA TIONS FOR LDL: ADULT CHILD LOW RISK <130 <110 (OPTI MAL LDL) <100 ----- BORDE RLINE : 130-1 59 ----- HIGH RISK: >160 >130 A TRIGL YCERI DE RESUL T >400 INVAL IDATE S THE CALCU LATIO N FOR LDL FRACT IONAT ION - THE LDL RESUL T WILL NOT BE REPOR LYLE. Not Available [facility] (Lab) [address] [place], [address], 09/16/2023 18:32:14 09/16/19 24 09/16/2023 COMPR EHENS BRAYDEN METAB OLIC PANEL sodium 138 mmol/ L 137-14 5 Not Available [facility] (Lab) [address] [place], [address], 09/16/2023 18:32:20 09/16/19 24 09/16/2023 COMPR EHENS BRAYDEN METAB OLIC PANEL potassium 4.3 mmol/ L 3.5-5. 1 Not Available [facility] (Lab) [address] [place], [address], 09/16/2023 18:32:20 09/16/19 24 09/16/2023 COMPR EHENS BRAYDEN METAB OLIC PANEL chloride 104 mmol/ L 98-107 Not Available [facility] (Lab) [address] [place], [address], 09/16/2023 18:32:20 09/16/19 24 09/16/2023 COMPR EHENS BRAYDEN METAB OLIC PANEL carbon dioxide 22 mmol/ L 22-30 Not Available [facility] (Lab) [address] [place], [address], 09/16/2023 18:32:20 09/16/19 24 09/16/2023 COMPR EHENS BRAYDEN METAB OLIC PANEL anion gap 16.3 mmol/ L 14-22 Not Available [facility] (Lab) [address] [place], [address], 09/16/2023 18:32:20 09/16/19 24 09/16/2023 COMPR EHENS BRAYDEN METAB OLIC PANEL glucose 131 mg/dL 70-99 high Not Available [facility] (Lab) [address] [place], [address], 09/16/2023 18:32:20 09/16/19 24 09/16/2023 COMPR EHENS BRAYDEN METAB OLIC PANEL BUN 14 mg/dL 8-19 Not Available [facility] (Lab) [address] [place], [address], 09/16/2023 18:32:20 09/16/19 24 09/16/2023 COMPR EHENS BRAYDEN METAB OLIC PANEL creatinine 1.89 mg/dL 0.66-1 .25 high Not Available [facility] (Lab) [address] [place], [address], 09/16/2023 18:32:20 09/16/19 24 09/16/2023 COMPR EHENS BRAYDEN METAB OLIC PANEL GFR 27 Refer ence Range : [place] GFR Healt hy Adult : >60 mL/mi n/1.7 3 m2 Chron ic Kidne y Disea se: 15-60 mL/mi n/1.7 3 m2 Kidne y Failu re: <15/m L/min /1.73 m2 www.n iddk. nih.g ov The MDRD study equat ion has not been valid ated in child germán <18 years of age; pregn ant women ; the elder ly >85 years of age; or in some racia l or ethni c subgr oups, such as [facility] nics. Outsi de the valid ated shayy eters , estim ated GFR is less accur ate, requi ring clini lewis judgm ent on a case- by-ca se basis . Clini lewis inter preta tion for other races and ages must be made by the clini manpreet. The MDRD study equat ion has not been valid ated for the evalu ation of serum creat inine relat ed to nutri lisha l statu s or medic ation usage . For perso ns <18 years of age, a pedia tric GFR calcu lator is avail able on the F websi te: https :[email or web address].o rg/pr ofess ional s/kdo qi/gf r_cal culat or Not Available [facility] (Lab) [address] [place], [address], 09/16/2023 18:32:20 09/16/19 24 09/16/2023 COMPR EHENS BRAYDEN METAB OLIC PANEL alkaline phosphatase 98 U/L 38-126 Not Available [facility] (Lab) [address] [place], [address], 09/16/2023 18:32:20 09/16/19 24 09/16/2023 COMPR EHENS BRAYDEN METAB OLIC PANEL alanine aminotransfe rase 21 U/L 0-35 Not Available [facility] (Lab) [address] [place], [address], 09/16/2023 18:32:20 09/16/19 24 09/16/2023 COMPR EHENS BRAYDEN METAB OLIC PANEL aspartate aminotransfe rase 31 U/L 15-37 Not Available [facility] (Lab) [address] [place], [address], 09/16/2023 18:32:20 09/16/19 24 09/16/2023 COMPR EHENS BRAYDEN METAB OLIC PANEL bilirubin, total 0.60 mg/dL 0.20-1 .30 Not Available [facility] (Lab) [address] [place], [address], 09/16/2023 18:32:20 09/16/19 24 09/16/2023 COMPR EHENS BRAYDEN METAB OLIC PANEL calcium 9.1 mg/dL 8.4-10 .2 Not Available [facility] (Lab) [address] [place], [address], 09/16/2023 18:32:20 09/16/19 24 09/16/2023 COMPR EHENS BRAYDEN METAB OLIC PANEL total protein 7.9 g/dL 6.3-8. 2 Not Available [facility] (Lab) [address] [place], [address], 09/16/2023 18:32:20 09/16/19 24 09/16/2023 COMPR EHENS BRAYDEN METAB OLIC PANEL albumin 4.6 g/dL 3.0-4. 4 high Not Available [facility] (Lab) [address] [place], [address], 09/16/2023 18:32:20 09/16/19 24 09/16/2023 COMPR EHENS BRAYDEN METAB OLIC PANEL globulin 3.3 g/dL 2.6-4. 2 Not Available [facility] (Lab) [address] [place], [address], 09/16/2023 18:32:20 09/16/19 24 09/16/2023 COMPR EHENS BRAYDEN METAB OLIC PANEL A/G ratio 1.4 ratio 1.0-2. 0 Not Available [facility] (Lab) [address] [place], [address], 09/16/2023 18:32:20 09/16/19 24 09/16/2023 MAGNE SIUM magnesium 1.7 mg/dL 1.6-2. 3 Not Available [facility] (Lab) [address] [place], [address], 09/16/2023 18:32:23 09/16/19 24 09/16/2023 PHOSP HORUS phosphorus 4.1 mg/dL 2.5-4. 5 Not Available [facility] (Lab) [address] [place], [address], 09/16/2023 18:32:25 09/16/19 24 09/16/2023 URIC ACID SERUM uric acid 11.6 mg/dL 2.5-6. 2 high Not Available [facility] (Lab) [address] [place], [address], 09/16/2023 18:32:29 09/16/19 24 09/16/2023 T4 FREE free T4 1.45 NG/dL 0.78-2 .19 Not Available [facility] (Lab) [address] [place], [address], 09/16/2023 18:34:20 09/16/19 24 09/16/2023 TSH thyroid-stim ulating hormone 10.600 uIU/m L 0.465- 4.680 high Not Available [facility] (Lab) [address] [place], [address], 09/16/2023 19:34:26 09/16/19 24 09/16/2023 PARAT HY.HO RM(PT H)INT ACT-W /O CA intact parathyroid hormone 322.2 pg/mL 24.0-7 8.0 high Pleas e note new refer ence range effec tive 06/08 . Not Available [facility] (Lab) [address] [place], [address], 09/16/2023 21:29:38 09/16/19 24 09/16/2023 VITAM IN D 25-HY DROXY vd25oh 27.0 NG/mL 30-100 low Vitam in D Statu s: Defic ient: <20 ng/mL Insuf ficie nt: 20-29 ng/mL Suffi cient : 30-10 0 ng/mL Not Available [facility] (Lab) [address] [place], [address], 09/16/2023 21:30:55 09/16/19 24 09/16/2023 VITAM IN B12 (ISIDRO TITO ) vb12 238 pg/mL 239-93 1 low Not Available [facility] (Lab) [address] [place], [address], 09/16/2023 22:35:44 09/18/19 24 09/18/2023 PROTE IN 24H URINE ur prot 9 mg/dL Not Available [facility] (Lab) [address] [place], [address], 09/18/2023 17:03:35 09/18/19 24 09/18/2023 PROTE IN 24H URINE 24H prot 180 mg/24 HR 42-225 Not Available [facility] (Lab) [address] [place], [address], 09/18/2023 17:03:35 09/18/19 24 09/18/2023 PROTE IN 24H URINE tot vol 2000 mL 600-20 00 Not Available [facility] (Lab) [address] [place], [address], 09/18/2023 17:03:35 09/18/19 24 09/18/2023 CREAT ININE CLEAR ANCE 24H URINE creatinine, serum 1.89 mg/dL 0.60-1 .30 high Not Available [facility] (Lab) [address] [place], [address], 09/18/2023 18:05:30 09/18/19 24 09/18/2023 CREAT ININE CLEAR ANCE 24H URINE ur creat 51.00 mg/dL Not Available [facility] (Lab) [address] [place], [address], 09/18/2023 18:05:30 09/18/19 24 09/18/2023 CREAT ININE CLEAR ANCE 24H URINE creacl 37 mL/mi n 88-128 low Not Available [facility] (Lab) [address] [place], [address], 09/18/2023 18:05:30 09/18/19 24 09/18/2023 CREAT ININE CLEAR ANCE 24H URINE tot vol 2000 mL 600-20 00 Not Available [facility] (Lab) [address] [place], [address], 09/18/2023 18:05:30 05/04/20 24 05/04/2024 CBC/C OMPLE TE BLD COUNT W/DIF F white blood cells 14.2 x10'3 /uL 4.2-10 .8 high Not Available [facility] (Lab) [address] [place], [address], 05/04/2024 17:46:03 05/04/20 24 05/04/2024 CBC/C OMPLE TE BLD COUNT W/DIF F red blood cells 4.66 x10'6 /uL 3.80-5 .20 Not Available [facility] (Lab) [address] [place], [address], 05/04/2024 17:46:03 05/04/20 24 05/04/2024 CBC/C OMPLE TE BLD COUNT W/DIF F hemoglobin 15.4 g/dL 12.0-1 5.6 Not Available [facility] (Lab) [address] [place], [address], 05/04/2024 17:46:03 05/04/20 24 05/04/2024 CBC/C OMPLE TE BLD COUNT W/DIF F hematocrit 44.9 % 35.7-4 5.7 Not Available [facility] (Lab) [address] [place], [address], 05/04/2024 17:46:03 05/04/20 24 05/04/2024 CBC/C OMPLE TE BLD COUNT W/DIF F mean red cell volume 96.4 fL 82.0-9 9.0 Not Available [facility] (Lab) [address] [place], [address], 05/04/2024 17:46:03 05/04/20 24 05/04/2024 CBC/C OMPLE TE BLD COUNT W/DIF F mean red cell hemoglobin 33.0 pg 27.0-3 3.0 Not Available [facility] (Lab) [address] [place], [address], 05/04/2024 17:46:03 05/04/20 24 05/04/2024 CBC/C OMPLE TE BLD COUNT W/DIF F mean RBC HGB concentratio n 34.3 g/dL 31.0-3 6.0 Not Available [facility] (Lab) [address] [facility] [place], [address], 05/04/2024 17:46:03 05/04/20 24 05/04/2024 CBC/C OMPLE TE BLD COUNT W/DIF F red cell distribution width 13.7 % 11.8-1 5.5 Not Available [facility] (Lab) [address] [place], [address], 05/04/2024 17:46:03 05/04/20 24 05/04/2024 CBC/C OMPLE TE BLD COUNT W/DIF F platelets 284 x10'3 /uL 150-40 0 Not Available [facility] (Lab) [address] [place], [address], 05/04/2024 17:46:03 05/04/20 24 05/04/2024 CBC/C OMPLE TE BLD COUNT W/DIF F mean platelet volume 11.0 fL 9.0-12 .4 Not Available [facility] (Lab) [address] [place], [address], 05/04/2024 17:46:03 05/04/20 24 05/04/2024 CBC/C OMPLE TE BLD COUNT W/DIF F neutrophils 55.7 % 39.0-7 2.0 Not Available [facility] (Lab) [address] [place], [address], 05/04/2024 17:46:03 05/04/20 24 05/04/2024 CBC/C OMPLE TE BLD COUNT W/DIF F lymphocytes 33.3 % 16.0-4 7.0 Not Available [facility] (Lab) [address] [place], [address], 05/04/2024 17:46:03 05/04/20 24 05/04/2024 CBC/C OMPLE TE BLD COUNT W/DIF F monocytes 7.1 % 5.0-12 .0 Not Available [facility] (Lab) [address] [place], [address], 05/04/2024 17:46:03 05/04/20 24 05/04/2024 CBC/C OMPLE TE BLD COUNT W/DIF F eosinophils 2.5 % 1.0-7. 0 Not Available [facility] (Lab) [address] [place], [address], 05/04/2024 17:46:03 05/04/20 24 05/04/2024 CBC/C OMPLE TE BLD COUNT W/DIF F basophils 0.8 % 0.0-2. 0 Not Available [facility] (Lab) [address] [place], [address], 05/04/2024 17:46:03 05/04/20 24 05/04/2024 CBC/C OMPLE TE BLD COUNT W/DIF F immature granulocytes 0.6 % 0.00-0 .50 high Not Available [facility] (Lab) [address] [place], [address], 05/04/2024 17:46:03 05/04/20 24 05/04/2024 CBC/C OMPLE TE BLD COUNT W/DIF F neutrophils, absolute count 7.89 x10'3 /uL 1.5-8. 0 Not Available [facility] (Lab) [address] [place], [address], 05/04/2024 17:46:03 05/04/20 24 05/04/2024 CBC/C OMPLE TE BLD COUNT W/DIF F lymphocytes, absolute count 4.71 x10'3 /uL 1.07-3 .43 high Not Available [facility] (Lab) [address] [place], [address], 05/04/2024 17:46:03 05/04/20 24 05/04/2024 CBC/C OMPLE TE BLD COUNT W/DIF F monocytes, absolute count 1.01 x10'3 /uL 0.29-0 .99 high Not Available [facility] (Lab) [address] [place], [address], 05/04/2024 17:46:03 05/04/20 24 05/04/2024 CBC/C OMPLE TE BLD COUNT W/DIF F eosinophils, absolute count 0.36 x10'3 /uL 0.02-0 .53 Not Available [facility] (Lab) [address] [place], [address], 05/04/2024 17:46:03 05/04/20 24 05/04/2024 CBC/C OMPLE TE BLD COUNT W/DIF F basophils, absolute count 0.11 x10'3 /uL 0.01-0 .08 high Not Available [facility] (Lab) [address] [place], [address], 05/04/2024 17:46:03 05/04/20 24 05/04/2024 CBC/C OMPLE TE BLD COUNT W/DIF F immature granulocytes ,absolute 0.08 x10'3 /uL 0.00-0 .05 high Not Available [facility] (Lab) [address] [place], [address], 05/04/2024 17:46:03 05/04/20 24 05/04/2024 CBC/C OMPLE TE BLD COUNT W/DIF F nucleated red blood cells 0.0 % -0 Not Available [facility] (Lab) [address] [place], [address], 05/04/2024 17:46:03 05/04/20 24 05/04/2024 CBC/C OMPLE TE BLD COUNT W/DIF F NRBC# 0.00 x10'3 /uL Not Available [facility] (Lab) [address] [place], [address], 05/04/2024 17:46:03 05/04/20 24 05/04/2024 COMPR EHENS BRAYDEN METAB OLIC PANEL sodium 142 mmol/ L 137-14 5 Not Available [facility] (Lab) [address] [place], [address], 05/04/2024 18:05:49 05/04/20 24 05/04/2024 COMPR EHENS BRAYDEN METAB OLIC PANEL potassium 4.0 mmol/ L 3.5-5. 1 Not Available [facility] (Lab) [address] [place], [address], 05/04/2024 18:05:49 05/04/20 24 05/04/2024 COMPR EHENS BRAYDEN METAB OLIC PANEL chloride 106 mmol/ L 98-107 Not Available [facility] (Lab) [address] [place], [address], 05/04/2024 18:05:49 05/04/20 24 05/04/2024 COMPR EHENS BRAYDEN METAB OLIC PANEL carbon dioxide 25 mmol/ L 22-30 Not Available [facility] (Lab) [address] [place], [address], 05/04/2024 18:05:49 05/04/20 24 05/04/2024 COMPR EHENS BRAYDEN METAB OLIC PANEL anion gap 15.0 mmol/ L 14-22 Not Available [facility] (Lab) [address] [place], [address], 05/04/2024 18:05:49 05/04/20 24 05/04/2024 COMPR EHENS BRAYDEN METAB OLIC PANEL glucose 145 mg/dL 70-99 high Not Available [facility] (Lab) [address] [place], [address], 05/04/2024 18:05:49 05/04/20 24 05/04/2024 COMPR EHENS BRAYDEN METAB OLIC PANEL BUN 20 mg/dL 8-19 high Not Available [facility] (Lab) [address] [place], [address], 05/04/2024 18:05:49 05/04/20 24 05/04/2024 COMPR EHENS BRAYDEN METAB OLIC PANEL creatinine 1.91 mg/dL 0.66-1 .25 high Not Available [facility] (Lab) [address] [place], [address], 05/04/2024 18:05:49 05/04/20 24 05/04/2024 COMPR EHENS BRAYDEN METAB OLIC PANEL GFR 26 Refer ence Range : [place] GFR Healt hy Adult : >60 mL/mi n/1.7 3 m2 Chron ic Kidne y Disea se: 15-60 mL/mi n/1.7 3 m2 Kidne y Failu re: <15/m L/min /1.73 m2 www.n iddk. nih.g ov The MDRD study equat ion has not been valid ated in child germán <18 years of age; pregn ant women ; the elder ly >85 years of age; or in some racia l or ethni c subgr oups, such as [employer] nics. Outsi de the valid ated shayy eters , estim ated GFR is less accur ate, requi ring clini lewis judgm ent on a case- by-ca se basis . Clini lewis inter preta tion for other races and ages must be made by the clini manpreet. The MDRD study equat ion has not been valid ated for the evalu ation of serum creat inine relat ed to nutri lisha l statu s or medic ation usage . For perso ns <18 years of age, a pedia tric GFR calcu lator is avail able on the [employer] websi te: https :[email or web address] [email or web address]/pr [email or web address] qi/gf r_cal culat or Not Available [facility] (Lab) [address] [place], [address], 05/04/2024 18:05:49 05/04/20 24 05/04/2024 COMPR EHENS BRAYDEN METAB OLIC PANEL alkaline phosphatase 99 U/L 38-126 Not Available [facility] (Lab) [address] [place], [address], 05/04/2024 18:05:49 05/04/20 24 05/04/2024 COMPR EHENS BRAYDEN METAB OLIC PANEL alanine aminotransfe rase 27 U/L 0-35 Not Available [facility] (Lab) [address] [place], [address], 05/04/2024 18:05:49 05/04/20 24 05/04/2024 COMPR EHENS BRAYDEN METAB OLIC PANEL aspartate aminotransfe rase 40 U/L 15-37 high Not Available [facility] (Lab) [address] [place], [address], 05/04/2024 18:05:49 05/04/20 24 05/04/2024 COMPR EHENS BRAYDEN METAB OLIC PANEL bilirubin, total 0.80 mg/dL 0.20-1 .30 Not Available [facility] (Lab) [address] [place], [address], 05/04/2024 18:05:49 05/04/20 24 05/04/2024 COMPR EHENS BRAYDEN METAB OLIC PANEL calcium 9.4 mg/dL 8.4-10 .2 Not Available [facility] (Lab) [address] [place], [address], 05/04/2024 18:05:49 05/04/20 24 05/04/2024 COMPR EHENS BRAYDEN METAB OLIC PANEL total protein 7.5 g/dL 6.3-8. 2 Not Available [facility] (Lab) [address] [place], [address], 05/04/2024 18:05:49 05/04/20 24 05/04/2024 COMPR EHENS BRAYDEN METAB OLIC PANEL albumin 4.6 g/dL 3.0-4. 4 high Not Available [facility] (Lab) [address] [place], [address], 05/04/2024 18:05:49 05/04/20 24 05/04/2024 COMPR EHENS BRAYDEN METAB OLIC PANEL globulin 2.9 g/dL 2.6-4. 2 Not Available [facility] (Lab) [address] [place], [address], 05/04/2024 18:05:49 05/04/20 24 05/04/2024 COMPR EHENS BRAYDEN METAB OLIC PANEL A/G ratio 1.6 ratio 1.0-2. 0 Not Available [facility] (Lab) [address] [place], [address], 05/04/2024 18:05:49 05/04/20 24 05/04/2024 LIPID PANEL cholesterol 144 mg/dL 140-19 9 NIH ANGEL NSUS RECOM MENDA TION FOR DELMY STERO L: ADULT CHILD LOW RISK: <200 <170 BORDE RLINE : <200- 239 ----- HIGH RISK: >240 >200 Not Available [facility] (Lab) [address] [place], [address], 05/04/2024 18:05:52 05/04/20 24 05/04/2024 LIPID PANEL triglyceride s 228 mg/dL 0-150 high NIH ANGEL NSUS REPOR T RECOM MENDA TION FOR TRIGL YCERI KENDRICK: ADULT CHILD LOW RISK: <150 ----- BODER LINE: 150-1 99 ----- HIGH RISK: >200 ----- Not Available [facility] (Lab) [address] [place], [address], 05/04/2024 18:05:52 05/04/20 24 05/04/2024 LIPID PANEL HDL cholesterol 43 mg/dL 40- Not Available [facility] (Lab) [address] [place], [address], 05/04/2024 18:05:52 05/04/20 24 05/04/2024 LIPID PANEL LDL cholesterol, calculated 55 mg/dL 0-130 NIH ANGEL NSUS REPOR T RECOM MENDA TIONS FOR LDL: ADULT CHILD LOW RISK <130 <110 (OPTI MAL LDL) <100 ----- BORDE RLINE : 130-1 59 ----- HIGH RISK: >160 >130 A TRIGL YCERI DE RESUL T >400 INVAL IDATE S THE CALCU LATIO N FOR LDL FRACT IONAT ION - THE LDL RESUL T WILL NOT BE REPOR LYLE. Not Available [facility] (Lab) [address] [place], [address], 05/04/2024 18:05:52 05/04/20 24 05/04/2024 MAGNE SIUM magnesium 1.4 mg/dL 1.6-2. 3 low Not Available [facility] (Lab) [address] [place], [address], 05/04/2024 18:05:54 05/04/20 24 05/04/2024 PHOSP HORUS phosphorus 3.8 mg/dL 2.5-4. 5 Not Available [facility] (Lab) [address] [place], [address], 05/04/2024 18:05:56 05/04/20 24 05/04/2024 URIC ACID SERUM uric acid 11.5 mg/dL 2.5-6. 2 high Not Available [facility] (Lab) [address] [place], [address], 05/04/2024 18:05:59 05/04/20 24 05/04/2024 PARAT CITLALY RM(PT H)INT ACT-W /O CA intact parathyroid hormone 208.1 pg/mL 24.0-7 8.0 high Pleas e note new refer ence range effec tive 06/08 . Not Available [facility] (Lab) [address] [place], [address], 05/04/2024 18:15:29 05/04/20 24 05/04/2024 T4 FREE free T4 2.48 NG/dL 0.78-2 .19 high Not Available [facility] (Lab) [address] [place], [address], 05/04/2024 18:21:18 05/04/20 24 05/04/2024 VITAM IN D 25-HY DROXY vd25oh 23.5 NG/mL 30-100 low Vitam in D Statu s: Defic ient: <20 ng/mL Insuf ficie nt: 20-29 ng/mL Suffi cient : 30-10 0 ng/mL Not Available [facility] (Lab) [address] [place], [address], 05/04/2024 18:21:23 05/04/20 24 05/04/2024 TSH thyroid-stim ulating hormone 0.452 uIU/m L 0.465- 4.680 low Not Available [facility] ([facility]) [address] [place], [address], 05/04/2024 18:34:27 05/04/20 24 05/04/2024 VITAM IN B12 (ISIDRO TITO ) vb12 243 pg/mL 239-93 1 Not Available [facility] ([facility]) [address] [place], [address], 05/04/2024 18:55:58 Result Notes None recorded. 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 2021 Not Available [facility] 3 09:51:13 Benign essential hypertens ion 2418577 Completed Not Available [facility] 3 12:52:36 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 Not Available [facility] 3 09:51:13 Serum creatinin e outside reference range 690568801 Active Not Available [facility] 3 09:51:13 Gastroeso phageal reflux disease 459010187 Active Not Available [facility] 3 09:51:13 Edema 751365849 Active Not Available [facility] 3 09:51:14 Pure hyperchol esterolem ia 679949107 Active Not Available [facility] 3 09:51:14 Vitamin D deficienc y 30325212 Active Not Available [facility] 3 09:51:14 Depressiv e disorder 60517286 Active Not Available [facility] 3 09:51:14 Chronic pain syndrome 193933385 Active 2020 Not Available [facility] 3 09:51:14 Migraine 81018731 Active Not Available [facility] 3 09:51:14 Hypothyro idism 78058232 Active Not Available [facility] 3 09:51:14 Chronic kidney disease stage 3 743643873 Active 2016 Not Available [facility] 3 09:51:14 Pain of left knee joint 92349577283 4107 Active 2021 Not Available [facility] 3 09:51:14 Essential hypertens ion 47413692 Active 2020 Not Available [facility] 3 09:51:14 Concussio n with no loss of conscious ness 50549977 Active 2021 Not Available [facility] 3 09:51:14 Secondary hyperpara thyroidis m 67501866 Active 2018 Not Available [facility] 3 09:51:14 Heat exhaustio n 22217818 Active Not Available [facility] 3 09:51:14 Acute sinusitis 92565466 Active 2022 Not Available [facility] 3 09:51:13 Chronic back pain 142079981 Active 2022 Not Available [facility] 3 09:51:13 Anxiety 80510102 Active 2022 Not Available [facility] 3 09:51:14 Bronchiti s 67468657 Active 2022 Not Available [facility] 3 09:51:14 Stomatiti s 52751004 Active 2023 Jeff Pond MD [address], [place], [address] , [facility] 4 14:24:42 Acute pharyngit is 408528981 Active 2023 Jeff Pond MD [address], [place], [address] , [facility] 4 14:25:20 Chronic renal failure 02003265 Active 2023 Maria Elena [place], [place] [facility] 4 16:28:02 Hyperlipi demia 45094510 Active 2023 Itzel Noble CMA null, [place] [facility] 4 17:10:31 Aphthous ulcer of mouth 617955933 Active 2024 Jeff Pond MD [address], [place], [address] , [facility] 5 11:40:24 Gouty arthritis 10750777 Active 2024 Itzel Noble CMA null, [place] [facility] 5 17:20:34 Problem Notes None recorded. Medical Equipment None Reported. Allergies Allergen ID Allergen Name Allergen Category Reaction Reaction Severity Criticality Documentation Date Start Date Code Code System Note Provider Name and Address Organization Details Recorded Time 95280 Levaquin medicatio n hives Not available Not available 07/11/2022 44036 2 RxNorm Not Available [facility] 3 12:57:06 85611 Celebrex medicatio n other Not available Not available 07/11/2022 54712 7 RxNorm uritc aria Not Available [facility] 3 12:57:06 Medications Name Sig Start Date Stop Date Status Note LastModified by Organization Details LastModified Time amoxicill in 500 mg capsule Take 1 capsule 3 times a day by oral route for 10 days. active Not Available Not Available No t Available albuterol sulfate 0.63 mg/3 mL solution for nebulizat ion Inhale 2 mg 4 times a day by inhalati on route. active Not Available Not Available No t Available potassium chloride ER 10 mEq capsule,e xtended release Take 1 capsule twice a day by oral route. 2012 active Not Available Not Available Not Avai lable venlafaxi ne ER 75 mg capsule,e xtended release 24 hr TAKE 1 CAPSULE BY MOUTH TWICE DAILY 06/16 completed Not Available Not Available Not Available atorvasta tin 20 mg tablet TAKE 1 TABLET BY MOUTH EVERY DAY active Not Available Not Available No t Available Zyrtec-D 5 mg-120 mg tablet,ex tended release TAKE 1 TABLET BY MOUTH TWICE DAILY active Not Available Not Available No t Available torsemide 20 mg tablet TAKE 2 TABLETS BY MOUTH DAILY FOR SWELLING active Not Available Not Available No t Available nitroglyc juhi 0.3 mg sublingua l tablet PLACE 1 TABLET (0.3 MG) BY SUBLINGU AL ROUTE AT THE FIRST SIGN OF AN ATTACK; NO MORE THAN 3 TABS ARE RECOMMEN DED WITHIN A 15 MINUTE PERIOD. 09/07 completed Not Available Not Available Not Available alprazola m 1 mg tablet Take 1 tablet 3 times a day by oral route. 07/17 completed Not Available Not Available Not Available benzonata te 200 mg capsule Take 1 capsule 3 times a day by oral route. 2023 active Not Available Not Available Not Avai lable metoprolo l succinate ER 50 mg tablet,ex tended release 24 hr TAKE 1 TABLET BY MOUTH EVERY DAY active Not Available Not Available No t Available hydrocodo ne 5 mg-acetam inophen 325 mg tablet TAKE 1 TABLET BY MOUTH THREE TIMES DAILY 09/12 completed Not Available Not Available Not Available ondansetr on HCl 4 mg tablet Take 1 tablet 3 times a day by oral route. 06/17 completed Not Available Not Available Not Available Zithromax Z-Jaylan 250 mg tablet Take 2 TABLET EVERY DAY by oral route for 1 day then one daily 2023 active Not Available Not Available Not Avai lable clindamyc in HCl 150 mg capsule Take 1 capsule every 6 hours by oral route. active Not Available Not Available No t Available venlafaxi ne ER 150 mg capsule,e xtended release 24 hr TAKE 1 CAPSULE BY MOUTH EVERY DAY active Not Available Not Available No t Available promethaz ine 6.25 mg-codein e 10 mg/5 mL syrup Take 5 ML EVERY 6 HOURS by oral route PRN for cough 08/06 completed Not Available Not Available Not Available allopurin ol 100 mg tablet TAKE 2 TABLETS BY MOUTH EVERY DAY active Not Available Not Available No t Available hydrocodo ne 10 mg-acetam inophen 325 mg tablet TAKE 1 TABLET BY MOUTH EVERY 6 HOURS NEEDED 06/12 completed 8 9 HYDROCOD ON-ACETA [place] 10-325 120 30 Insuranc e [facility] S/ [place] JEFF POND MD 8 04/07/20 19 LORAZEPA M 2MG 120 30 Insuranc e [facility] S/ [place] JEFF POND MD 8 9 HYDROCOD ON-ACETA [place] 10-325 120 30 Insuranc e [facility] 8 03/09/20 19 LORAZEPA M 2MG 120 30 [facility] JEFF POND MD 8 9 HYDROCOD ON-ACETA [place] 10-325 120 30 Insuranc e [facility] S/ [place] JEFF POND MD 8 9 LORAZEPA M 2MG 120 30 Insuranc e [facility]/ [facility] 8 01/13/2019 HYDROCOD ON-ACETA [place] 10-325 120 30 [facility] [place]/ [place] JEFF POND [place]MEI [place] 8 01/11/2019 LORAZEPA M 2MG 120 30 [facility]uranc e [facility]/ [facility] JEFF POND MD PAUL[place] 8 12/14/2018 HYDROCOD ON-ACETA [place] 10-325 120 30 [facility]uranc e [facility]/ [facility] JEFF POND MDMEI [place] 8 12/12/2018 LORAZEPA M 2MG 120 30 [facility]uranc e [facility]/ [place] JEFF POND MDMEI [place] 8 11/14/2018 HYDROCOD ON-ACETA [place] 10-325 120 30 [facility] JEFF POND MD Not Available Not Available Not Available triamcino lone acetonide 0.1 % topical cream ARIEL THIN LAYER EXT AA BID active Not Available Not Available No t Available levothyro xine 100 mcg tablet TAKE 1 TABLET BY MOUTH EVERY DAY active Not Available Not Available No t Available Tessalon Perles 100 mg capsule Take 1 capsule 3 times a day by oral route. active Not Available Not Available No t Available amoxicill in 875 mg tablet Take 1 tablet every 12 hours by oral route. 05/11 completed Not Available Not Available Not Available Imodium A-D 2 mg tablet TAKE 2 TABLETS (4 MG) BY ORAL ROUTE AFTER 1ST LOOSE STOOL AND 1 TABLET (2 MG) AFTER EACH NEXT BOWEL MOVEMENT ; DO NOT EXCEED 16 MG IN 24HRS 2012 active Not Available Not Available Not Avai lable lorazepam 2 mg tablet TAKE 1 TABLET BY MOUTH THREE TIMES DAILY NEEDED 2024 active Not Available Not Available Not Avai lable hydrocodo ne 7.5 mg-acetam inophen 325 mg tablet TAKE 1 TABLET BY MOUTH THREE TIMES DAILY DX: M54.16 active Not Available Not Available No t Available pantopraz ole 40 mg tablet,de layed release TAKE 1 TABLET BY MOUTH DAILY active Not Available Not Available No t Available simvastat in 20 mg tablet TAKE 1 TABLET BY MOUTH EVERY DAY 05/08 completed Not Available Not Available Not Available cyanocoba tito (vit B-12) 1,000 mcg/mL injection solution patient will inject 1 ml every week for four weeks then once monthly active Not Available Not Available No t Available levothyro xine 125 mcg tablet TAKE 1 TABLET BY MOUTH EVERY DAY 05/08 completed Not Available Not Available Not Available tobramyci n 0.3 % eye drops Instill 1 drop(s) EVERY 4 HOURS by ophthalm ic route. 07/17 completed Not Available Not Available Not Available lansopraz ole 30 mg capsule,d elayed release TAKE ONE CAPSULE BY MOUTH DAILY active Not Available Not Available No t Available Valtrex 1 gram tablet Take 1 tablet 3 times a day by oral route. active Not Available Not Available No t Available lidocaine HCl 2 % mucosal solution APPLY 15 ML TO AFFECTED AREA OF MOUTH EVERY 3 HOURS active Not Available Not Available No t Available aspirin 81 mg chewable tablet Chew 1 tablet every day by oral route. 07/17 completed Not Available Not Available Not Available ergocalci ferol (vitamin D2) 1,250 mcg (50,000 unit) capsule TAKE 1 CAPSULE BY MOUTH WEEKLY FOR 12 WEEKS active Not Available Not Available No t Available zolpidem 10 mg tablet TAKE 1 TABLET BY MOUTH EVERY NIGHT AT BEDTIME active Not Available Not Available No t Available methylpre dnisolone 4 mg tablets in a dose pack FOLLOW PACKAGE DIRECTIO NS 01/18 completed Not Available Not Available Not Available albuterol sulfate HFA 90 mcg/actua tion aerosol inhaler INHALE 2 PUFFS BY MOUTH EVERY 4 HOURS 2023 active Not Available Not Available Not Avai lable Lomotil 2.5 mg-0.025 mg tablet Take 2 tablets 4 times a day by oral route. 09/07 completed Not Available Not Available Not Available ondansetr on 4 mg disintegr ating tablet DISSOLVE 1 TABLET ON THE TONGUE EVERY 8 HOURS 2023 active Not Available Not Available Not Avai lable cefdinir 300 mg capsule TAKE 1 CAPSULE BY MOUTH EVERY 12 HOURS 05/04 completed Not Available Not Available Not Available Klonopin 1 mg tablet Take 1 tablet 3 times a day by oral route. 2012 active Not Available Not Available Not Avai lable fluticaso ne propionat e 50 mcg/actua tion nasal spray,rell pension SHAKE LIQUID AND USE 2 SPRAYS IN EACH NOSTRIL DAILY 09/07 completed Not Available Not Available Not Available Ambien 5 mg tablet One HS for sleep 07/17 completed Not Refillab dennis Before: 09/12/19 14 Not Available Not Available Not Available amoxicill in 875 mg-potass ium clavulana te 125 mg tablet TAKE 1 TABLET BY MOUTH EVERY 12 HOURS 05/04 completed Not Available Not Available Not Available Bactrim DS 800 mg-160 mg tablet Take 1 tablet every 12 hours by oral route for 7 days. 09/09 completed Not Available Not Available Not Available escitalop ingrid 10 mg tablet TAKE 1 TABLET BY MOUTH DAILY FOR ANXIETY AND DEPRESSI ON active Not Available Not Available No t Available potassium chloride ER 10 mEq tablet,ex tended release(p art/cryst ) TAKE 1 TABLET BY MOUTH TWICE DAILY 2024 active Not Available Not Available Not Avai lable vitamin E daily 09/07 completed Not Available Not Available Not Available Imodium A-D 2mg tid ac 2013 active Not Available Not Available Not Avai lable Ocuvite daily multivit etllez vitamin with minerals 2012 active Not Available Not Available Not Avai lable [place] 3 1000 mg once daily 2012 active Not Available Not Available Not Avai lable fenofibra te nanocryst allized 48 mg tablet TAKE 1 TABLET BY MOUTH DAILY active Not Available Not Available No t Available Vitamin D3 125 mcg (5,000 unit) tablet Take 1 tablet every day by oral route. 07/17 completed Not Available Not Available Not Available ProAir RespiClic k 90 mcg/actua tion breath activated Inhale 2 puffs every 4 hours by inhalati on route. 2022 active Not Available Not Available Not Avai lable Linzess 72 mcg capsule TAKE 1 CAPSULE BY MOUTH EVERY DAY active Not Available Not Available No t Available Vitals Date Recorded Body height Body mass index (BMI) Body weight Heart rate Oxygen saturation Oxygen saturation in Arterial blood by Pulse oximetry Systolic And Diastolic Provider Name and Address Organization Details Last Updated DateTime 5 162.56 cm 25.9 kg/m2 55969.4 5 g 113 /min 96 % 96 % 122/80 mm[Hg] Itzel Noble CMA [facility] [employer] [facility] 5 16:47:32 Date Recorded Body height Body mass index (BMI) Body weight Heart rate Body temperature Oxygen saturation Oxygen saturation in Arterial blood by Pulse oximetry Systolic And Diastolic Provider Name and Address Organization Details Last Updated DateTime 3 162.56 cm 24.5 kg/m2 42394.7 1 g 50 /min 97 [degF] 97 % 97 % 124/82 mm[Hg] [facility] [employer] [facility] 3 16:27:13 Date Recorded Body height Body mass index (BMI) Body weight Heart rate Body temperature Oxygen saturation Oxygen saturation in Arterial blood by Pulse oximetry Systolic And Diastolic Provider Name and Address Organization Details Last Updated DateTime 4 162.56 cm 25.9 kg/m2 04866.4 5 g 97 /min 97.5 [degF] 98 % 98 % 118/82 mm[Hg] ANTON Javier [facility] [employer] [facility] 4 16:16:19 Date Recorded Body height Body mass index (BMI) Body weight Heart rate Body temperature Oxygen saturation Oxygen saturation in Arterial blood by Pulse oximetry Systolic And Diastolic Provider Name and Address Organization Details Last Updated DateTime 3 162.56 cm 24.7 kg/m2 29020.3 g 108 /min 97 [degF] 99 % 99 % 122/80 mm[Hg] [facility] [employer] [facility] 3 11:47:25 Date Recorded Body height Body mass index (BMI) Body weight Heart rate Body temperature Oxygen saturation Oxygen saturation in Arterial blood by Pulse oximetry Systolic And Diastolic Provider Name and Address Organization Details Last Updated DateTime 4 162.56 cm 25.2 kg/m2 54171.0 8 g 116 /min 97 [degF] 99 % 99 % 168/102 mm[Hg] [facility] [employer] [facility] 4 16:32:18 Social History None recorded. Functional Status None recorded. Mental Status None recorded. Family History Nothing Reported Notes:Mother 63 yea rs old Father 74 years old 4 Brothers 3 Living one has Waldenstrom's Macroglobulemia Mother Hx ASHD, DM, PVD Father Hx ASHD, Ca of Lung Brother Hx MVA (1) Medical History Condition Response NERVE DISEASE N BLINDNESS N RHEUMATIC FEVER N KIDNEY STONES N BLADDER PROBLEMS N MRSA N OTHER # 1 N POLIO N LUNG DISEASE/DISORDER N RADIATION / CHEMOTHERAPY N COPD N Other # 2 N BLOOD DISEASES N EAR OR HEARING PROBLEMS N MUMPS N BOWEL PROBLEMS N DEPRESSION (INCLUDING POST ) Y STROKE/TIA N ULCERS N BENIGN PROSTATIC HYPERPLASIA N MEASLES N MYOCARDIAL INFARCTION N OBESITY N GERD/NAUSEA N ANEURYSM N URINARY/BLADDER/KIDNEY PROBLEMS N CORONARY ARTERY DISEASE (CAD) N ADDICTION CONCERNS N Impotence N ENDOMETRIOSIS N USE OF BLOOD THINNERS N SKIN PROBLEMS N GASTROINTESTINAL DISORDER N PERIPHERAL VASCULAR DISEASE N MUSCLE,JOINT OR BONE PROBLEMS N GASTROINTESTINAL BLEEDING N BLOOD CLOTS N ASTHMA N CATARACTS N ERECTILE DYSFUNCTION N VARICOSITIES N GI PROBLEMS N Low Testosterone N INFERTILITY N AIDS/HIV N CHEMOTHERAPY / RADIATION N LIVER DISEASE N MALE HYPOGONADISM N HYPERTENSION Y Deficiency N TOURETTE'S N ANXIETY DISORDER N BLOOD TRANSFUSION N ANEMIA/BLOOD DISORDER N CHRONIC EAR INFECTIONS N BRONCHITIS N TUBERCULOSIS N GLAUCOMA N FOOT PROBLEM N DIVERTICULITIS N SLEEP APNEA N CHICKENPOX N INFECTIOUS DISEASE N PROSTATE N HEART ARRHYTHMIA N INSOMNIA N HIGH CHOLESTEROL / HYPERLIPIDEMIA Y EYE PROBLEMS N HYPERTHYROIDISM N EDEMA Y CHRONIC PAIN SYNDROME N HYPOTHYROIDISM Y CONSTIPATION N CAROTID BLOCKAGE N BACK / NECK PROBLEMS N HAVE YOU BEEN HOSPITALIZED OR SEEN IN [facility] IN THE PAST YEAR ? N ATHEROSCLEROSIS N BREAST PROBLEMS N DIALYSIS N ECZEMA N OSTEOPOROSIS N ARTHRITIS N NO SIGNIFICANT PAST MEDICAL HISTORY N APPENDICITIS N DIABETES, TYPE Y BAD TEETH N ENT N HEARTBURN / REFLUX Y AUTISM SPECTRUM DISORDER (ASD) N HEPATITIS / LIVER DISEASE N GOUT N SLEEP DISORDER N ALZHEIMER'S DISEASE N Brain Problems N DEMENTIA N HERPES N SEIZURES/EPILEPSY N HEADACHES/MIGRAINES Y VASCULAR DISEASE N PACEMAKER N Blood Disorder N DIZZINESS N HEART DISEASE/HEART PROBLEMS N KIDNEY DISEASE Y MULTIPLE SCLEROSIS N CANCER: SPECIFY N CARDIAC ARRHYTHMIA N ATRIAL FIBRILLATION N Gall Stones N PULMONARY EMBOLISM N AUTOIMMUNE DISEASE N Gynecological HistoryNo gynecological history recorded. Obstetrics History GPAL:G 0 P 0 0 0 0 Immunizations Vaccine Type Date Status Note Provider Nam e and Address Organization Details Recorded Time SARS-COV-2 (COVID-19) vaccine, UNSPECIFIED completed Not Available [facility] 01/29/2023 09:51:14 SARS-COV-2 (COVID-19) vaccine, UNSPECIFIED 1 completed Not Available [facility] 01/29/2023 09:51:14 Influenza, split virus, quadrivalent, preservative 9 completed Not Available [facility] 01/29/2023 09:51:14 Influenza, split virus, quadrivalent, PF 1 completed Not Available [facility] 01/29/2023 09:51:14 Past Encounters Encounter ID Performer Location Encounter Start Date Encounter Closed Date Diagnosis/Indication Diagnosis SNOMED-CT Code Diagnosis ICD10 Code Diagnosis Note [id number] Jeff Pond MD [facility] Internal Med [facility] [address] [address] 10/05/2020 00:00:00 10/05/2020 17:11:14 [id number] Jeff Pond MD [facility] Internal Med [facility] [address] [address] 03/08/2021 00:00:00 03/08/2021 16:29:41 [id number] Jeff Pond MD [facility] Internal Med [facility] [address] [address] 07/26/2021 00:00:00 07/26/2021 17:16:19 [id number] Jeff Pond MD [facility] Internal Med [facility] [address] [address] 01/03/2022 00:00:00 01/03/2022 16:50:36 [id number] Jeff Pond MD [facility] Internal Med [facility] [address] [address] 09/12/2022 15:59:02 09/12/2022 16:44:21 Essential hypertension 21058023 I10 Hypothyroidism 15589298 E03.9 Pure hypercholesterolemia 723907306 E78.00 Chronic ki dney disease stage 3 108066724 N18.30 [id number] Jeff Pond MD S[facility] Internal Med [address]ie [address] [facility] y , [facility] [place] [address] 01/18/2023 11:32:52 01/18/2023 12:01:31 Chronic kidney disease stage 3 181693733 N18.30 Essential hypertension 65210821 I10 Hypothyroidism 68961094 E03.9 Gastroesop hageal reflux disease 520760414 K21.9 Pure hypercholesterolemia 552873607 E78.00 [id number] Jeff Pond MD [facility] Internal Med [facility] [address] [address] 0 09/16/2023 16:03:35 09/16/2023 16:31:29 Chronic kidney disease stage 3 243836954 N18.30 Essential hypertension 73545587 I10 Hypothyroidism 57678746 E03.9 Pure hypercholesterolemia 392311290 E78.00 Gastroesop hageal reflux disease 944203588 K21.9 [id number] Jeff Pond MD [facility] Internal Med [facility] [address] [address] 0 05/04/2024 16:14:31 05/04/2024 16:47:24 Chronic pain syndrome 386712509 G89.4 Chronic ki dney disease stage 3 182250775 N18.30 Essential hypertension 40534072 I10 Gastroesop hageal reflux disease 872126502 K21.9 Pure hypercholesterolemia 695619776 E78.00 [id number] Jeff Pond MD [facility] Internal Med [facility] [address] [address] 0 08/31/2024 16:15:35 08/31/2024 17:13:00 Chronic kidney disease stage 3 846849878 N18.30 Essential hypertension 24944238 I10 Gastroesop hageal reflux disease 915727033 K21.9 Hypothyroidism 59397908 E03.9 Health Concerns Section Related Observation LastModified by Organization Detai ls LastModified Time None Recorded Concern Status LastModified by Organization Details LastModified Time None Recorded Advance Directives Directive None Recorded Payers Insurance Date Sequence Insurance Name Policy Number Policy Corona Covered Member ID Corona Member ID Guarantor Name 08/31/2024 2 [employer] - GEHA - DOS PRIOR TO 2024 (PPO) [id number] Mc Zhu [id number] Elena Zhu 08/31/2024 1 [place] Elena Zhu [id number] Elena Zhu 08/31/2024 2 R - [facility] 05/13/2024 AND AFTER [id number] Mc Zhu [id number] Elena Zhu Notes Date Note Type Note Provider Name and Address Organization Details Recorded Time 3 text/htm l Patient Name: Elena Madridate Of Service: Saturday ( 01.18.2023 ): 1955 Age: 67 There has been approximately a 1 lb weight gain since 09/12/2022. This represents approximately a .7% change in weight. Weight change attributable to lifestyle changes. Vital Signs:Blood Pressure: Sitting Rt. Arm 122/80Pulse: Sitting 108 /min and RegularRespirations: 12Height 64 in or 1.6 mWeight 144 lb or 65.3 kgBMI 24.7Temperature: 97 F or 36.1 CPulse Oximetry: 99 % at rest on no oxygen Chief Complaint: Addressed in HPI Problems or conditions discussed in the HPI were the only ones reviewed during the encounter.Only social and family history addressed in the HPI were reviewed during this encounter. Attendant(s): NoneConstitutional and Systemic Symptoms: none Medication Reconciliation: from medication list. History of Present Illness #1. Essential Hypertension: Stage: Stage I Interval Neurological Complaints no headaches, dizziness, weakness, visual changes, ataxia, aphasia and apraxia. No shortness of breath, orthopnea or cardiovascular symptoms. No other symptoms related to end organ damage. Pressure has been under excellent control. Currently normal. No other end organ symptoms or findings. Therapy reviewed regarding management of hypertension and includes salt restriction and Metoprolol Succinate. #2. Hx of hypothyroidism currently stable. Heat intolerance: no Fatigue: no Weight gain: no Difficulty concentrating: no Muscle Symptoms: none Skin Texture: normal Skin Color: normal Currently taking synthroid. #3. History of chronic renal failure currently doing well. Currently is followed by a contact lens technician. Stage: CKD-3b. Albumin Stage: A1. There has been no change in urine output or color. No fever or chills. #4. Hx of esophageal reflux currently stable. Hx of Complications: none The severity, duration and intensity of symptoms have improved. Frequency: most meals Treatment consists medications taken on intermittent basis. Current therapy includes Protonix. There has been no nausea, eructation, vomiting, hematemesis, dysphagia, velopharyngeal insufficiency and odynophagia. No change in he frequency or intensity of symptoms. Has had no melena. Has had no hematemesis. Discuss the possibility of trying to reduce the frequency of the use of any PPI inhibitors or H2 antagonist to see if symptoms can be controlled with last intensive therapy.#5. Hyperlipidemia clinically stable currently taking Tricor and along with simvastatin. Overall doing well most recent cholesterol 176 HDL 53 and LDL 91. Last creatinine was 1.63. The patient be followed by Nephrology.Medication List Reviewed and Reconciled 01/18/2023Synthroid 0.125 MG (TABLET - ORAL) One DailyK-dur 10 MEQ One BidZocor 20 MG (TABLET - ORAL) One Hs For CholesterolMetoprolol Succinate 50 MG TARTRATE (TABLET, EXTENDED RELEASE - ORAL) One DailyDemadex 20 MG (TABLET - ORAL) Two Daily For EdemaEffexor Xr 75 MG (CAPSULE, EXTENDED RELEASE - ORAL) One DailyTricor 48 MG (TABLET - ORAL) One Daily For TriglyceridesAtivan 2 MG (TABLET - ORAL) One Three Times A DayAlbuterol Sulfate Hfa 2 Puffs Four Times A DayProtonix 40 MG (TABLET, DELAYED RELEASE - ORAL) DailyZyrtec-d Twice A DayZofran 4 MG (TABLET, ORALLY DISINTEGRATING - ORAL) As DirectedVitamin E DailyNitroglycerin 0.4 MG/HR (FILM, EXTENDED RELEASE - TRANSDERMAL) As DirectedAllopurinol 300 MG (TABLET - ORAL) One DailyLinzess 72MCG (CAPSULE - ORAL) DailyADRs List Reviewed 3Celebrex UritcariaLevaquin HivesCipro RashVaccination and Puqkayzrjblh3644-87 Rqypyvwvo1106-66 Covid Kvzvtr4339-21 PneumovaxSurgical HistoryThyroid Surgery, Hysterectomy, Rt. OopherectomyPreventative Testing Confirmed by Our Akzlqyi4109/12/2022 ALBUMIN 4.5 G/DL H008/02/2014 HAIC 6.2 % OF TOTAL HGB H002/04/2014 LETTER [id number]/19/2012 MAMMOGRAM 07/19/2013Social HistorySOCIAL HISTORY:Marital Status: MarriedSmoking Hx: .5 packs of cigarettes per day for 20 years.Drinking Hx: 15 oz of coffee per day, 24 oz of tea per day.Exercise: InfrequentlySexual Hx: Sexually ActiveFamily HistoryFAMILY HISTORY:Mother 63 years oldFather 74 years old4 Brothers 3 Living one has Waldenstrom's MacroglobulinaemiaMother Hx: ASHD, DM, PVDFather Hx: ASHD, Ca of LungBrother Hx: MVA (1) Jeff Pond MD [address] [facility], [facility] [address], [place], [address], [place] 01/18/2023 11:58:43 4 text/htm l Patient Name: Elena Raymundo Of Service: Saturday ( 09.16.2023 ): 1955 Age: 68 There has been approximately a 7 lb weight gain since 01/18/2023. This represents approximately a 4.9% change in weight. Weight change attributable to lifestyle changes. Vital Signs:Blood Pressure: Sitting Rt. Arm 118/82Pulse: Sitting 97 /min and RegularRespiratory Rate: 12Height 64 in or 1.6 mWeight 151 lb or 68.5 kgBMI 25.9Temperature: 97.5 F or 36.4 CPulse Oximetry: 98 % at rest on no oxygen Chief Complaint: Addressed in HPI Problems or conditions discussed in the HPI were the only ones reviewed during the encounter.Only social and family history addressed in the HPI were reviewed during this encounter. Attendant(s): BrotherConstitutional and Systemic Symptoms:none Medication Reconciliation: from medication list. History of Present Illness #1. Essential Hypertension: Stage: Stage I Interval Neurological Complaints no headaches, dizziness, weakness, visual changes, ataxia, aphasia and apraxia. No shortness of breath, orthopnea or cardiovascular symptoms. No other symptoms related to end organ damage. Pressure has been under excellent control. Currently normal. No other end organ symptoms or findings. Therapy reviewed regarding management of hypertension and includes salt restriction and Metoprolol Succinate. #2. Type II Hypercholesterolaemia: Currently taking medication and tolerating well. No interval complaints of any muscle pain or arthralgia. No significant liver changes with medications. Last lipid panel: no testing done recently. Therapy reviewed regarding treatment of cholesterol management and include diet and Tricor and Zocor. #3. Hx of hypothyroidism currently stable. Heat intolerance: no Fatigue: no Weight gain: no Difficulty concentrating: no Muscle Symptoms: none Skin Texture: normal Skin Color: normal Currently taking synthroid. #4. Hx of esophageal reflux currently stable. Hx of Complications: none The severity, duration and intensity of symptoms have improved. Frequency: most meals Treatment consists medications taken on intermittent basis. Current therapy includes Protonix. There has been no nausea, eructation, vomiting, hematemesis, dysphagia, velopharyngeal insufficiency and odynophagia. No change in he frequency or intensity of symptoms. Has had no melena. Has had no . Discussed use of H2 antagonists and the possibility of trying to reduce the frequency of the use of any PPI inhibitors and try H2 antagonists to see if symptoms can be controlled with lease intensive therapy since a number of complications are associated with chronic prolonged use of PPI inhibitors. #5. History of chronic renal failure currently doing well. 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 Stage: CKD-3a. Albumin Stage: A1. There has been no change in urine output or color. No fever or chills. Active Medication ListSynthroid 0.125 MG (TABLET - ORAL) One DailyK-dur 10 MEQ One BidZocor 20 MG (TABLET - ORAL) One Hs For CholesterolMetoprolol Succinate 50 MG TARTRATE (TABLET, EXTENDED RELEASE - ORAL) One DailyDemadex 20 MG (TABLET - ORAL) Two Daily For EdemaEffexor Xr 75 MG (CAPSULE, EXTENDED RELEASE - ORAL) One DailyTricor 48 MG (TABLET - ORAL) One Daily For TriglyceridesAtivan 2 MG (TABLET - ORAL) One Three Times A DayAlbuterol Sulfate Hfa 2 Puffs Four Times A DayProtonix 40 MG (TABLET, DELAYED RELEASE - ORAL) DailyZyrtec-d Twice A DayZofran 4 MG (TABLET, ORALLY DISINTEGRATING - ORAL) As DirectedVitamin E DailyNitroglycerin 0.4 MG/HR (FILM, EXTENDED RELEASE - TRANSDERMAL) As DirectedAllopurinol 300 MG (TABLET - ORAL) One DailyLinzess 72MCG (CAPSULE - ORAL) Daily Adverse Drug Reactions ReviewedCelebrex UritcariaLevaquin HivesCipro Rash Vaccination and Djaeoloowvph0055-55 Sibdnabtw0235-39 Covid Heesio8555-45 Pneumovax Surgical Jjrtwyd3805-65 Thyroid Mwbkrcx1204-71 Qzvobqvnxgss2992-87 Rt. Oopherectomy Preventative Xxlbkho2409/12/2022 ALBUMIN 4.5 G/DL H008/02/2014 HAIC 6.2 % OF TOTAL HGB H002/04/2014 [id number]/19/2012 MAMMOGRAM 11/28/2012 Social HistorySOCIAL HISTORY:Marital Status: MarriedSmoking Hx: .5 packs of cigarettes per day for 20 years.Drinking Hx: 15 oz of coffee per day, 24 oz of tea per day.Exercise: InfrequentlySexual Hx: Sexually Active Family HistoryFAMILY HISTORY:Mother 63 years oldFather 74 years old4 Brothers 3 Living one has Waldenstrom's MacroglobulinaemiaMother Hx: ASHD, DM, PVDFather Hx: ASHD, Ca of LungBrother Hx: MVA (1) TEST RESULT RANGE UNITSCOMPREHENSIVE METABOLIC PANEL Date: 09/12/2022SODIUM 138 137-145 MMOL/LPOTASSIUM 3.7 3.5-5.1 MMOL/LGLUCOSE 101 70-99 MG/DLBUN 17 8-19 MG/DLCREATININE 1.63 0.66-1.25 MG/DLGFR 32ALKALINE PHOSPHATASE 92 38-126 U/LALANINE AMINOTRANSFERASE 12 0-35 U/LASPARTATE AMINOTRANSFERASE 22 15-37 U/LBILIRUBIN, TOTAL 0.50 0.20-1.30 MG/DLCBC/COMPLETE BLD COUNT W/DIFF Date: 09/12/2022WHITE BLOOD CELLS 13.1 4.2-10.8 X10'3/ULHEMOGLOBIN 15.1 12.0-15.6 G/DLHEMATOCRIT 45.6 35.7-45.7 %PLATELETS 243 150-400 X10'3/ULPARATHY.HORM(PTH)INT ACT-W/O CA Date: 09/12/2022INTACT PARATHYROID HORMONE 193.5 24.0-78.0 PG/MLPHOSPHORUS Date: 09/12/2022HOSPHORUS 3.8 2.5-4.5 MG/DLT4 FREE Date: 09/12/2022FREE T4 2.01 0.78-2.19 NG/DLTSH Date: 09/12/2022THYROID-STIMULATING HORMONE 2.590 0.465-4.680 UIU/MLURIC ACID SERUM Date: 09/12/2022URIC ACID 7.2 2.5-6.2 MG/DLVITAMIN D 25-HYDROXY Date: 09/12/20222006GW84WY 34.2 30-100 NG/ML Jeff Pond MD [address] [facility] [address], [place], [address], [place] 09/16/2023 16:26:28 4 text/htm l Patient Name: Elena Raymundo Of Service: Saturday ( 05.04.2024 ): 1955 Age: 68 Chief Complaint: Addressed in HPI Problems or conditions discussed in the HPI were the only ones reviewed during the encounter.Only social and family history addressed in the HPI were reviewed during this encounter. Attendant(s): NoneConstitutional and Systemic Symptoms:none Medication Reconciliation: from medication list. History of Present Illness #1. Essential Hypertension: Stage: Stage I Interval Neurological Complaints no headaches, dizziness, weakness and visual changes. No shortness of breath, orthopnea or cardiovascular symptoms. No other symptoms related to end organ damage. Pressure has been under excellent control. Currently normal. No other end organ symptoms or findings. Therapy reviewed regarding management of hypertension and includes salt restriction and Metoprolol Succinate. #2. Hx of esophageal reflux currently stable. Hx of Complications: none The severity, duration and intensity of symptoms have improved. Frequency: most meals Treatment consists medications taken on intermittent basis. Current therapy includes Protonix. There has been no nausea, eructation, vomiting, hematemesis, dysphagia, velopharyngeal insufficiency and odynophagia. No change in he frequency or intensity of symptoms. Has had no melena. Has had no . Discussed use of H2 antagonists and the possibility of trying to reduce the frequency of the use of any PPI inhibitors and try H2 antagonists to see if symptoms can be controlled with lease intensive therapy since a number of complications are associated with chronic prolonged use of PPI inhibitors. #3. History of chronic renal failure currently doing well. 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 Stage: CKD-3b. Albumin Stage: A1. There has been no change in urine output or color. No fever or chills. #4. Chronic pain management for chronic lumbar Since last examination no significant change since last examination Interval Testing: noneHas tried NSAIDS partial relief requiring additional medication. Pain Description: intermittent, exacerbated by activity and interferes with enjoyment and ability to perform activities of daily living. Currently seeing or has seen in the past a Cad Draftsman: No .Pain - Enjoyment of Life - General Activity ScalePain on Average: 4Enjoyment of Live: 4General Activity: 3Enjoyment of Life - General Activity Scale: 4Currently regimen consists of Tylenol as prescribed with no evidence of abuse or self prescribing. Current Average Morphine Milligram Approximate Equivalent: 0 mg approximated if taking full dosage daily. Recommend: NA.Benzodiazepines or other hypnotics: yes and have discussed reducing dose.Alternative pain management modalities (acupuncture - behavior therapy- additional PT - SNRIs) have been discussed and have either been tried in the past or not acceptable alternatives to patient or not available in our location.Will kept medications the same.Urine Testing: not indicated and this time.Controlled substance database yes and no discrepancies or multiple prescribers noted. Pill counts when available have been acceptable. No other signs of any abuse.Patient reports condition is stable and is able to function with the medication. Denies any misuse or adverse effects.TREATMENT OBJECTIVE: Enhance ability to manage pain independently, improved function and sustain quality of life. Recommendations or alternative therapies and lifestyle changes are discussed on each visit. Has shown improvement inf functionality. Has been educated on the side effects,risks and any black box warnings. Has verbalized the dangers of some of the medications regarding driving and cooperating heavy machinery and have advised against this.#5. Hyperlipidemia currently taking the simvastatin as well as the Tricor. Clinically is doing well. Interval complaints of any new problems. Active Medication ListSynthroid 0.125 MG (TABLET - ORAL) One DailyK-dur 10 MEQ One BidZocor 20 MG (TABLET - ORAL) One Hs For CholesterolMetoprolol Succinate 50 MG TARTRATE (TABLET, EXTENDED RELEASE - ORAL) One DailyDemadex 20 MG (TABLET - ORAL) Two Daily For EdemaEffexor Xr 75 MG (CAPSULE, EXTENDED RELEASE - ORAL) One DailyTricor 48 MG (TABLET - ORAL) One Daily For TriglyceridesAtivan 2 MG (TABLET - ORAL) One Three Times A DayAlbuterol Sulfate Hfa 2 Puffs Four Times A DayProtonix 40 MG (TABLET, DELAYED RELEASE - ORAL) DailyZyrtec-d Twice A DayZofran 4 MG (TABLET, ORALLY DISINTEGRATING - ORAL) As DirectedVitamin E DailyNitroglycerin 0.4 MG/HR (FILM, EXTENDED RELEASE - TRANSDERMAL) As DirectedAllopurinol 300 MG (TABLET - ORAL) One DailyLinzess 72MCG (CAPSULE - ORAL) Daily Adverse Drug Reactions ReviewedCelebrex UritcariaLevaquin HivesCipro Rash Vaccination and Immunization(X) 2007- PNEUMOVAX PREVNAR 20 Needed(X) 2020- INFLUENZA(X) 2020- COVID #[facility] Yebcjtu5295-57 Thyroid Gcnfofl0285-13 Mnjbvqwdyxue3806-87 Rt. Oopherectomy Preventative Testing( ) 09/16/2023 Albumin 4.6 G/DL H( ) 08/02/2014 HAIC 6.2 % OF TOTAL HGB H( ) 02/04/2014 Ophthalmology(X) 11/29/2011 Mammogram 11/28/2013 Social HistorySOCIAL HISTORY:Marital Status: MarriedSmoking Hx: .5 packs of cigarettes per day for 20 years.Drinking Hx: 15 oz of coffee per day, 24 oz of tea per day.Exercise: InfrequentlySexual Hx: Sexually Active Family HistoryFAMILY HISTORY:Mother 63 years oldFather 74 years old4 Brothers 3 Living one has Waldenstrom's MacroglobulinaemiaMother Hx: ASHD, DM, PVDFather Hx: ASHD, Ca of LungBrother Hx: MVA (1) Jeff Pond MD [address] [facility], [facility] [address], [place], [address], [facility] [place] [facility] 05/04/2024 16:44:37 5 text/htm l Patient Name: Elena Raymundo Of Service: Saturday ( 08.31.2024 ): 1955 Age: 69 Vital Signs:Blood Pressure: Sitting Rt. Arm 122/80Pulse: Sitting 113 /min and RegularRespiratory Rate: 16Height 64 in or 1.6 mWeight 151 lb or 68.5 kgBMI 25.9Temperature: 97 F or 36.1 CPulse Oximetry: 96 % at rest on no oxygen Chief Complaint: Addressed in HPI Problems or conditions discussed in the HPI were the only ones reviewed during the encounter.Only social and family history addressed in the HPI were reviewed during this encounter. Attendant(s): BrotherConstitutional and Systemic Symptoms:none Medication Reconciliation: from medication list. History of Present Illness #1. Essential Hypertension: Stage: Stage I Interval Neurological Complaints no headaches, dizziness, weakness, visual changes, ataxia, aphasia and apraxia. No shortness of breath, orthopnea or cardiovascular symptoms. No other symptoms related to end organ damage. Pressure has been under excellent control. Currently normal. No other end organ symptoms or findings. Therapy reviewed regarding management of hypertension and includes salt restriction and Metoprolol Succinate. #2. Hx of hypothyroidism currently stable. Heat intolerance: no Fatigue: no Weight gain: no Difficulty concentrating: no Muscle Symptoms: none Skin Texture: normal Skin Color: normal Currently taking synthroid. #3. Hx of esophageal reflux currently stable. Hx of Complications: none The severity, duration and intensity of symptoms have improved. Frequency: most meals Treatment consists medications taken on intermittent basis. Current therapy includes Protonix. There has been no nausea. No change in he frequency or intensity of symptoms. Has had no melena. Has had no . Discussed use of H2 antagonists NA. #4. History of chronic renal failure currently doing well. Currently is followed by a contact lens technician. Stage: CKD-3b. Albumin Stage: A1. There has been no change in urine output or color. No fever or chills. Active Medication ListSynthroid 100 UG TABLET One DailyK-dur 10 MEQ One BidMetoprolol Succinate 50 MG TARTRATE (TABLET, EXTENDED RELEASE - ORAL) One DailyDemadex 20 MG (TABLET - ORAL) Two Daily For EdemaEffexor Xr 150 MG One DailyAspirin 81 MG TABLET QdTricor 48 MG (TABLET - ORAL) One Daily For TriglyceridesAtivan 2 MG (TABLET - ORAL) One Three Times A DayAlbuterol Sulfate Hfa 2 Puffs Four Times A DayProtonix 40 MG (TABLET, DELAYED RELEASE - ORAL) DailyZyrtec-d Twice A DayZofran 4 MG (TABLET, ORALLY DISINTEGRATING - ORAL) As DirectedVitamin E DailyNitroglycerin 0.4 MG/HR (FILM, EXTENDED RELEASE - TRANSDERMAL) As DirectedAllopurinol 100 MG TABLET One DailyLinzess 72MCG (CAPSULE - ORAL) DailyLipitor 20 MG TABLET, FILM COATED Qd Adverse Drug Reactions ReviewedCelebrex UritcariaLevaquin HivesCipro Rash Vaccination and Immunization(X) 2007- PNEUMOVAX PREVNAR 20 Needed(X) 2020- INFLUENZA(X) 2020- COVID #[facility] Xuztdso8154-57 Thyroid Ukjclbz5890-48 Hqywlvffskzi7313-40 Rt. Oopherectomy Preventative Testing( ) 05/04/2024 Albumin 4.6 G/DL H( ) 08/02/2014 HAIC 6.2 % OF TOTAL HGB H( ) 02/04/2014 Ophthalmology(X) 11/29/2011 Mammogram 11/28/2013 Social HistorySOCIAL HISTORY:Marital Status: MarriedSmoking Hx: .5 packs of cigarettes per day for 20 years.Drinking Hx: 15 oz of coffee per day, 24 oz of tea per day.Exercise: InfrequentlySexual Hx: Sexually Active Family HistoryFAMILY HISTORY:Mother 63 years oldFather 74 years old4 Brothers 3 Living one has Waldenstrom's MacroglobulinaemiaMother Hx: ASHD, DM, PVDFather Hx: ASHD, Ca of LungBrother Hx: MVA (1) Jeff Pond MD [address] [facility], [facility] [address], [place], [address], [place] [facility] [employer] [facility] 08/31/2024 17:09:48 OBGyn Episode No OBEpisode recorded.
[2024-11-23 13:27] LABS: Hematocrit 46.4 % (37.0-47.0); Hemoglobin 15.3 g/dL (12.0-15.0); Immature Granulocyte Percent A 0.4 % (0-0.5); Lymphocytes Absolute Auto 3.23 K/mm3 (0.9-3.2); Mean Corpuscular HGB Conc 33.0 g/dl (32-36); Mean Corpuscular Hemoglobin 30.9 pg (26-34); Mean Corpuscular Volume 93.7 fl (80-100); Nucleated Red Blood Cells Absolute Auto 0.000 K/mm3 (0.0-0.012); Nucleated Red Blood Cells Perc 0.0 % (0.0-0.2); Platelet Count Result 246 k/mm3 (150-375); Red Blood Count 4.95 M/mm3 (4.2-5.4); White Blood Count 10.5 K/mm3 (4.5-10.0)
[2024-11-23 13:35] LABS: Add Urine Microscopic? NO; Appearance Urine Clear (Clear); Glucose Urine UA Negative (Negative); Leukocyte Esterase Ur Negative LEU/UL (Negative); Nitrate Urine Negative (Negative); Specific Grav Ur 1.020 (1.001-1.035)
[2024-11-23 14:00] LABS: Total Protein Urine Random < 5 mg/dL; Ur Ttl Prot Creatinine Ratio < 0.03 mg/mg (0-0.20)
[2024-11-23 14:03] LABS: Albumin Level 4.4 g/dL (3.5-5.1); Anion Gap 9 mmol/L (4-12); Blood Urea Nitrogen 14 mg/dL (7-17); Calcium 9.0 mg/dL (8.4-10.2); Carbon Dioxide 25 mmol/L (22-30); Chloride 104 mmol/L (98-107); Estimated Glomerular Filt Rate 36; Glucose 115 mg/dL (65-110); Magnesium 1.8 mg/dL (1.6-2.3); Potassium 3.9 mmol/L (3.4-5.0); Sodium 138 mmol/L (137-145); Uric Acid 7.4 mg/dL (2.5-7.5)
== END 2024-11-23 12:31 | disposition home or self-care (01) ==
PROVIDERS: PCP Internal Medicine; Visit Provider Internal Medicine Nephrology
DX: I12.9 Hypertensive chronic kidney disease with stage 1 through stage 4 chronic kidney disease, or unspecified chronic kidney disease (principal); N18.4 Chronic kidney disease, stage 4 (severe); E55.9 Vitamin D deficiency, unspecified
CPT/HCPCS: 36415; 80069; 81003; 82306; 82570; 83735; 83970; 84156; 84550; 85025